=== PATIENT | female | born 1965 | race American Indian/Alaskan Native ===

== ENCOUNTER 2018-08-20 18:18 | Inpatient (IN) | payer MEDICARE ==
--- NOTE | 2018-08-20 18:31 | Emergency Department Report ---
ED Altered Mental Status HPI - General Stated Complaint: AMS Time Seen by Provider: 08/20/18 18:26 - History of Present Illness Initial Comments: Patient is 53 years old female with unknown past medical history. Patient brought to the emergency room via EMS after patient roommate called and stated that patient is unresponsive. EMS stated that the patient was combative with stable vital signs and a blood glucose of more than 500. In the emergency room patient is obtunded. Airway intact with an oxygen saturation of 100%. Unable to obtain more history at this moment. Patient found to be hypothermic with a temperature of 93 with BP of 66/38. Sepsis protocol initiated. Complaint: altered mental status, decreased responsiveness -: unknown Severity: moderate - Related Data Home Medications Medication Instructions Recorded Confirmed Last Taken Aspirin [Aspir-Low] 81 mg PO DAILY 08/20/18 08/20/18 08/20/18 AtorvaSTATin [Lipitor] 10 mg PO QHS 08/20/18 08/20/18 08/20/18 Folic Acid [Folvite] 1 mg PO QDAY 08/20/18 08/20/18 08/20/18 Gabapentin [Neurontin] 300 mg PO Q8HR 08/20/18 08/20/18 08/20/18 HYDROmorphone [Dilaudid] 2 mg PO Q6HR 08/20/18 08/20/18 08/20/18 Hydroxyurea [Hydrea] 500 mg PO DAILY 08/20/18 08/20/18 08/20/18 Linagliptin [Tradjenta] 5 mg PO QDAY 08/20/18 08/20/18 08/20/18 Losartan [Cozaar] 25 mg PO QDAY 08/20/18 08/20/18 08/20/18 Methylphenidate [Ritalin] 10 mg PO DAILY 08/20/18 08/20/18 08/20/18 Omeprazole 40 mg PO DAILY 08/20/18 08/20/18 08/20/18 Sertraline [Zoloft] 100 mg PO QDAY 08/20/18 08/20/18 08/20/18 Triamterene/Hydrochlorothiazid 1 each PO DAILY 08/20/18 08/20/18 08/20/18 [Triamterene-Hctz 37.5-25 mg Cp] metFORMIN [Glucophage] 500 mg PO BID 08/20/18 08/20/18 08/20/18 traZODone [Desyrel] 50 mg PO QHS 08/20/18 08/20/18 08/20/18 Allergies Allergy/AdvReac Type Severity Reaction Status Date / Time No Known Allergies Allergy Unverified 08/20/18 19:24 ED Review of Systems ROS: Stated complaint: AMS Other details as noted in HPI Comment: Unobtainable due to pts medical conditions ED Past Medical Hx - Medications Home Medications: Home Medications Medication Instructions Recorded Confirmed Last Taken Type Aspirin [Aspir-Low] 81 mg PO DAILY 08/20/18 08/20/18 08/20/18 History AtorvaSTATin [Lipitor] 10 mg PO QHS 08/20/18 08/20/18 08/20/18 History Folic Acid [Folvite] 1 mg PO QDAY 08/20/18 08/20/18 08/20/18 History Gabapentin [Neurontin] 300 mg PO Q8HR 08/20/18 08/20/18 08/20/18 History HYDROmorphone [Dilaudid] 2 mg PO Q6HR 08/20/18 08/20/18 08/20/18 History Hydroxyurea [Hydrea] 500 mg PO DAILY 08/20/18 08/20/18 08/20/18 History Linagliptin [Tradjenta] 5 mg PO QDAY 08/20/18 08/20/18 08/20/18 History Losartan [Cozaar] 25 mg PO QDAY 08/20/18 08/20/18 08/20/18 History Methylphenidate [Ritalin] 10 mg PO DAILY 08/20/18 08/20/18 08/20/18 History Omeprazole 40 mg PO DAILY 08/20/18 08/20/18 08/20/18 History Sertraline [Zoloft] 100 mg PO QDAY 08/20/18 08/20/18 08/20/18 History Triamterene/Hydrochlorothiazid 1 each PO DAILY 08/20/18 08/20/18 08/20/18 His tory [Triamterene-Hctz 37.5-25 mg Cp] metFORMIN [Glucophage] 500 mg PO BID 08/20/18 08/20/18 08/20/18 History traZODone [Desyrel] 50 mg PO QHS 08/20/18 08/20/18 08/20/18 History ED Physical Exam - General Limitations: Altered Mental Status General appearance: obtunded - Head Head exam: Present: atraumatic, normocephalic, normal inspection - Eye Eye exam: Present: normal appearance - ENT ENT exam: Present: normal exam, normal orophraynx, mucous membranes moist - Neck Neck exam: Present: normal inspection, full ROM. Absent: tenderness, meningismus, lymphadenopathy, thyromegaly - Respiratory Respiratory exam: Present: normal lung sounds bilaterally. Absent: respiratory distress, wheezes, rales, rhonchi, accessory muscle use, decreased breath sounds, prolonged expiratory - Cardiovascular Cardiovascular Exam: Present: tachycardia - GI/Abdominal GI/Abdominal exam: Present: soft. Absent: distended, tenderness, guarding, rebound - Extremities Exam Extremities exam: Present: normal inspection, full ROM, normal capillary refill - Back Exam Back exam: Present: normal inspection - Neurological Exam Neurological exam: Present: altered - Skin Skin exam: Present: warm, intact, normal color - Level of Consciousness 1a. Level of Consciousness: arousable/minor stimuli - LOC Questions 1b. LOC Questions: answers no questions correctly - LOC Command 1c. LOC Commands: performs no tasks correctly - Best Gaze 2. Best Gaze: normal - Visual 3. Visual: no visual loss - Facial Palsy 4. Facial Palsy: normal symmetrical movement - Motor Arm 5a. Motor Arm Left: some gravity effort 5b. Motor Arm Right: some gravity effort - Motor Leg 6a. Motor Leg Left: some gravity effort 6b. Motor Leg Right: some gravity effort - Limb Ataxia 7. Limb Ataxia: absent - Sensory 8. Sensory: no response/quadraplegic - Best Language 9. Best Language: coma/unresponsive - Dysarthria 10. Dysarthria: intubated or other barrier - Extinction and Inattention 11. Extinction/Inattention: no abnormality - Scoring Total Score: 18 Stroke Severity: Moderate to Severe Stroke ED Course Vital Signs 08/20/18 08/20/18 08/20/18 18:18 18:30 18:37 Temperature Pulse Rate 113 H 111 H 112 H Respiratory 14 15 19 Rate Blood Pressure 174/63 Blood Pressure 174/63 [Left] O2 Sat by Pulse 79 L 88 Oximetry 08/20/18 08/20/18 08/20/18 18:44 18:46 18:54 Temperature 93.4 F L 93.4 F L Pulse Rate 106 H Respiratory 18 Rate Blood Pressure 174/63 Blood Pressure [Left] O2 Sat by Pulse 94 94 Oximetry 08/20/18 08/20/18 08/20/18 19:00 19:16 19:30 Temperature Pulse Rate 107 H 99 H Respiratory 18 13 Rate Blood Pressure 174/63 103/44 103/44 Blood Pressure [Left] O2 Sat by Pulse 97 94 97 Oximetry 08/20/18 08/20/18 08/20/18 19:46 20:00 20:15 Temperature Pulse Rate 101 H 97 H 98 H Respiratory 12 16 16 Rate Blood Pressure 105/53 89/50 105/53 Blood Pressure [Left] O2 Sat by Pulse 99 94 94 Oximetry 08/20/18 08/20/18 08/20/18 20:31 20:45 21:00 Temperature Pulse Rate 105 H 102 H 102 H Respiratory 14 11 L 14 Rate Blood Pressure 127/43 116/59 112/56 Blood Pressure [Left] O2 Sat by Pulse 97 99 96 Oximetry 08/20/18 08/20/18 08/20/18 21:15 21:31 21:45 Temperature Pulse Rate 105 H 101 H 107 H Respiratory 13 11 L 14 Rate Blood Pressure 112/56 112/56 108/53 Blood Pressure [Left] O2 Sat by Pulse 98 93 97 Oximetry 08/20/18 08/20/18 08/20/18 22:00 22:15 22:31 Temperature Pulse Rate 103 H 104 H 105 H Respiratory 13 14 13 Rate Blood Pressure 111/63 111/63 112/67 Blood Pressure [Left] O2 Sat by Pulse 90 91 91 Oximetry 08/20/18 08/20/18 23:07 23:11 Temperature 98.3 F Pulse Rate 106 H Respiratory 13 Rate Blood Pressure 106/51 Blood Pressure [Left] O2 Sat by Pulse 89 Oximetry - Reevaluation(s) Reevaluation #1: 08/20/18 20:06 Patient family arrived. The patient's sister is in the room. 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 Family stated that she has been sweating a lot this morning but she was coherent. They stated that she did not complain of any chest pain cough or shortness of breath. Also there was no complaint of abdominal pain or headache. - Lab Data Result diagrams: 08/20/18 18:18 08/20/18 18:18 Lab Results 08/20/18 08/20/18 08/20/18 Range/Units 18:18 18:18 18:18 WBC 32.1 H (4.5-11.0) K/mm3 RBC 2.89 L (3.65-5.03) M/mm3 Hgb 9.7 L (10.1-14.3) gm/dl Hct 28.0 L (30.3-42.9) % MCV 97 (79-97) fl MCH 34 H (28-32) pg MCHC 35 H (30-34) % RDW 18.9 H (13.2-15.2) % Plt Count 237 (140-440) K/mm3 Lymph # Tattoo Identifier Add Manual Diff Complete Total Counted 200 Seg Neuts % (Manual) 82.5 H (40.0-70.0) % Band Neutrophils % 1.5 % Lymphocytes % (Manual) 8.0 L (13.4-35.0) % Reactive Lymphs % (Man) 0 % Monocytes % (Manual) 6.5 (0.0-7.3) % Eosinophils % (Manual) 0 (0.0-4.3) % Basophils % (Manual) 0.5 (0.0-1.8) % Metamyelocytes % 1.0 % Myelocytes % 0 % Promyelocytes % 0 % Blast Cells % 0 % Nucleated RBC % 1.0 H (0.0-0.9) % Seg Neutrophils # Man 26.5 H (1.8-7.7) K/mm3 Band Neutrophils # 0.5 K/mm3 Lymphocytes # (Manual) 2.6 (1.2-5.4) K/mm3 Abs React Lymphs (Man) 0.0 K/mm3 Monocytes # (Manual) 2.1 H (0.0-0.8) K/mm3 Eosinophils # (Manual) 0.0 (0.0-0.4) K/mm3 Basophils # (Manual) 0.2 H (0.0-0.1) K/mm3 Metamyelocytes # 0.3 K/mm3 Myelocytes # 0.0 K/mm3 Promyelocytes # 0.0 K/mm3 Blast Cells # 0.0 K/mm3 WBC Morphology Not Reportable Hypersegmented Neuts Not Reportable Hyposegmented Neuts Not Reportable Hypogranular Neuts Not Reportable Smudge Cells Not Reportable Toxic Granulation Not Reportable Toxic Vacuolation Not Reportable Dohle Bodies Not Reportable Pelger-Huet Anomaly Not Reportable Christ Rods Not Reportable Platelet Estimate Consistent w auto Clumped Platelets Not Reportable Plt Clumps, EDTA Not Reportable Large Platelets Few Giant Platelets Not Reportable Platelet Satelliting Not Reportable Plt Morphology Comment Not Reportable RBC Morphology Not Reportable Dimorphic RBCs Not Reportable Polychromasia 1+ Hypochromasia 2+ Poikilocytosis 3+ Anisocytosis 2+ Microcytosis Not Reportable Macrocytosis Not Reportable Spherocytes Not Reportable Pappenheimer Bodies Not Reportable Sickle Cells 2+ Target Cells 2+ Tear Drop Cells Not Reportable Ovalocytes Not Reportable Helmet Cells Not Reportable Luis-Haigler Bodies Not Reportable [place] Rings Not Reportable Jennifer Cells Not Reportable Bite Cells Not Reportable Crenated Cell Not Reportable Elliptocytes Not Reportable Acanthocytes (Spur) Not Reportable Rouleaux Not Reportable Hemoglobin C Crystals Not Reportable Schistocytes Not Reportable Malaria parasites Not Reportable Percent Retic (0.78-2.58) % Juancarlos Bodies Not Reportable Hem Pathologist Commnt No PT 13.8 (12.2-14.9) Sec. INR 1.00 (0.87-1.13) APTT 27.4 (24.2-36.6) Sec. Sodium 137 (137-145) mmol/L Potassium 4.9 (3.6-5.0) mmol/L Chloride 101.5 (98-107) mmol/L Carbon Dioxide 19 L (22-30) mmol/L Anion Gap 21 mmol/L BUN 26 H (7-17) mg/dL Creatinine 1.8 H (0.7-1.2) mg/dL Estimated GFR 35 ml/min BUN/Creatinine Ratio 14 % Glucose 461 H (65-100) mg/dL Lactic Acid (0.7-2.0) mmol/L Calcium 9.2 (8.4-10.2) mg/dL Total Bilirubin 3.70 H (0.1-1.2) mg/dL Direct Bilirubin 0.7 H (0-0.2) mg/dL Indirect Bilirubin 3.0 mg/dL AST 54 H (5-40) units/L ALT 28 (7-56) units/L Alkaline Phosphatase 93 (35-129) units/L Ammonia (25-60) umol/L Total Creatine Kinase 46 (30-135) units/L Troponin T 0.035 H (0.00-0.029) ng/mL Total Protein 7.6 (6.3-8.2) g/dL Albumin 4.2 (3.9-5) g/dL Albumin/Globulin Ratio 1.2 % Triglycerides 137 (2-149) mg/dL Cholesterol 129 (50-199) mg/dL LDL Cholesterol Direct 79 (50-130) mg/dL HDL Cholesterol 41 (40-59) mg/dL Cholesterol/HDL Ratio 3.14 % Urine Color (Yellow) Urine Turbidity (Clear) Urine pH (5.0-7.0) Ur Specific [place] (1.003-1.030) Urine Protein (Negative) mg/dL Urine Glucose (UA) (Negative) mg/dL Urine Ketones (Negative) mg/dL Urine Blood (Negative) Urine Nitrite (Negative) Urine Bilirubin (Negative) Urine Urobilinogen (<2.0) mg/dL Ur Leukocyte Esterase (Negative) Urine WBC (Auto) (0.0-6.0) /HPF Urine RBC (Auto) (0.0-6.0) /HPF U Epithel Cells (Auto) (0-13.0) /HPF Urine Bacteria (Auto) (Negative) /HPF Hyaline Casts /LPF Urine Mucus /HPF Salicylates (2.8-20.0) mg/dL Urine Opiates Screen Urine Methadone Screen Acetaminophen (10.0-30.0) ug/mL Ur Barbiturates Screen Ur Phencyclidine Scrn Ur Amphetamines Screen U Benzodiazepines Scrn Urine Cocaine Screen U Marijuana (THC) Screen Drugs of Abuse Note Plasma/Serum Alcohol (0-0.07) % 08/20/18 08/20/18 08/20/18 Range/Units 18:18 18:18 18:18 WBC (4.5-11.0) K/mm3 RBC (3.65-5.03) M/mm3 Hgb (10.1-14.3) gm/dl Hct (30.3-42.9) % MCV (79-97) fl MCH (28-32) pg MCHC (30-34) % RDW (13.2-15.2) % Plt Count (140-440) K/mm3 Lymph # Add Manual Diff Total Counted Seg Neuts % (Manual) (40.0-70.0) % Band Neutrophils % % Lymphocytes % (Manual) (13.4-35.0) % Reactive Lymphs % (Man) % Monocytes % (Manual) (0.0-7.3) % Eosinophils % (Manual) (0.0-4.3) % Basophils % (Manual) (0.0-1.8) % Metamyelocytes % % Myelocytes % % Promyelocytes % % Blast Cells % % Nucleated RBC % (0.0-0.9) % Seg Neutrophils # Man (1.8-7.7) K/mm3 Band Neutrophils # K/mm3 Lymphocytes # (Manual) (1.2-5.4) K/mm3 Abs React Lymphs (Man) K/mm3 Monocytes # (Manual) (0.0-0.8) K/mm3 Eosinophils # (Manual) (0.0-0.4) K/mm3 Basophils # (Manual) (0.0-0.1) K/mm3 Metamyelocytes # K/mm3 Myelocytes # K/mm3 Promyelocytes # K/mm3 Blast Cells # K/mm3 WBC Morphology Hypersegmented Neuts Hyposegmented Neuts Hypogranular Neuts Smudge Cells Toxic Granulation Toxic Vacuolation Dohle Bodies Pelger-Huet Anomaly Christ Rods Platelet Estimate Clumped Platelets Plt Clumps, EDTA Large Platelets Giant Platelets Platelet Satelliting Plt Morphology Comment RBC Morphology Dimorphic RBCs Polychromasia Hypochromasia Poikilocytosis Anisocytosis Microcytosis Macrocytosis Spherocytes Pappenheimer Bodies Sickle Cells Target Cells Tear Drop Cells Ovalocytes Helmet Cells Luis-Haigler Bodies [place] Rings Jennifer Cells Bite Cells Crenated Cell Elliptocytes Acanthocytes (Spur) Rouleaux Hemoglobin C Crystals Schistocytes Malaria parasites Percent Retic (0.78-2.58) % Juancarlos Bodies Hem Pathologist Commnt PT (12.2-14.9) Sec. INR (0.87-1.13) APTT (24.2-36.6) Sec. Sodium (137-145) mmol/L Potassium (3.6-5.0) mmol/L Chloride (98-107) mmol/L Carbon Dioxide (22-30) mmol/L Anion Gap mmol/L BUN (7-17) mg/dL Creatinine (0.7-1.2) mg/dL Estimated GFR ml/min BUN/Creatinine Ratio % Glucose (65-100) mg/dL Lactic Acid (0.7-2.0) mmol/L Calcium (8.4-10.2) mg/dL Total Bilirubin (0.1-1.2) mg/dL Direct Bilirubin (0-0.2) mg/dL Indirect Bilirubin mg/dL AST (5-40) units/L ALT (7-56) units/L Alkaline Phosphatase (35-129) units/L Ammonia (25-60) umol/L Total Creatine Kinase (30-135) units/L Troponin T (0.00-0.029) ng/mL Total Protein (6.3-8.2) g/dL Albumin (3.9-5) g/dL Albumin/Globulin Ratio % Triglycerides (2-149) mg/dL Cholesterol (50-199) mg/dL LDL Cholesterol Direct (50-130) mg/dL HDL Cholesterol (40-59) mg/dL Cholesterol/HDL Ratio % Urine Color (Yellow) Urine Turbidity (Clear) Urine pH (5.0-7.0) Ur Specific [place] (1.003-1.030) Urine Protein (Negative) mg/dL Urine Glucose (UA) (Negative) mg/dL Urine Ketones (Negative) mg/dL Urine Blood (Negative) Urine Nitrite (Negative) Urine Bilirubin (Negative) Urine Urobilinogen (<2.0) mg/dL Ur Leukocyte Esterase (Negative) Urine WBC (Auto) (0.0-6.0) /HPF Urine RBC (Auto) (0.0-6.0) /HPF U Epithel Cells (Auto) (0-13.0) /HPF Urine Bacteria (Auto) (Negative) /HPF Hyaline Casts /LPF Urine Mucus /HPF Salicylates < 0.3 L (2.8-20.0) mg/dL Urine Opiates Screen Urine Methadone Screen Acetaminophen < 5.0 L (10.0-30.0) ug/mL Ur Barbiturates Screen Ur Phencyclidine Scrn Ur Amphetamines Screen U Benzodiazepines Scrn Urine Cocaine Screen U Marijuana (THC) Screen Drugs of Abuse Note Plasma/Serum Alcohol < 0.01 (0-0.07) % 08/20/18 08/20/18 08/20/18 Range/Units 18:44 18:44 19:50 WBC (4.5-11.0) K/mm3 RBC (3.65-5.03) M/mm3 Hgb (10.1-14.3) gm/dl Hct (30.3-42.9) % MCV (79-97) fl MCH (28-32) pg MCHC (30-34) % RDW (13.2-15.2) % Plt Count (140-440) K/mm3 Lymph # Add Manual Diff Total Counted Seg Neuts % (Manual) (40.0-70.0) % Band Neutrophils % % Lymphocytes % (Manual) (13.4-35.0) % Reactive Lymphs % (Man) % Monocytes % (Manual) (0.0-7.3) % Eosinophils % (Manual) (0.0-4.3) % Basophils % (Manual) (0.0-1.8) % Metamyelocytes % % Myelocytes % % Promyelocytes % % Blast Cells % % Nucleated RBC % (0.0-0.9) % Seg Neutrophils # Man (1.8-7.7) K/mm3 Band Neutrophils # K/mm3 Lymphocytes # (Manual) (1.2-5.4) K/mm3 Abs React Lymphs (Man) K/mm3 Monocytes # (Manual) (0.0-0.8) K/mm3 Eosinophils # (Manual) (0.0-0.4) K/mm3 Basophils # (Manual) (0.0-0.1) K/mm3 Metamyelocytes # K/mm3 Myelocytes # K/mm3 Promyelocytes # K/mm3 Blast Cells # K/mm3 WBC Morphology Hypersegmented Neuts Hyposegmented Neuts Hypogranular Neuts Smudge Cells Toxic Granulation Toxic Vacuolation Dohle Bodies Pelger-Huet Anomaly Christ Rods Platelet Estimate Clumped Platelets Plt Clumps, EDTA Large Platelets Giant Platelets Platelet Satelliting Plt Morphology Comment RBC Morphology Dimorphic RBCs Polychromasia Hypochromasia Poikilocytosis Anisocytosis Microcytosis Macrocytosis Spherocytes Pappenheimer Bodies Sickle Cells Target Cells Tear Drop Cells Ovalocytes Helmet Cells Luis-Haigler Bodies [place] Rings Jennifer Cells Bite Cells Crenated Cell Elliptocytes Acanthocytes (Spur) Rouleaux Hemoglobin C Crystals Schistocytes Malaria parasites Percent Retic (0.78-2.58) % Juancarlos Bodies Hem Pathologist Commnt PT (12.2-14.9) Sec. INR (0.87-1.13) APTT (24.2-36.6) Sec. Sodium (137-145) mmol/L Potassium (3.6-5.0) mmol/L Chloride (98-107) mmol/L Carbon Dioxide (22-30) mmol/L Anion Gap mmol/L BUN (7-17) mg/dL Creatinine (0.7-1.2) mg/dL Estimated GFR ml/min BUN/Creatinine Ratio % Glucose (65-100) mg/dL Lactic Acid 6.60 H* (0.7-2.0) mmol/L Calcium (8.4-10.2) mg/dL Total Bilirubin (0.1-1.2) mg/dL Direct Bilirubin (0-0.2) mg/dL Indirect Bilirubin mg/dL AST (5-40) units/L ALT (7-56) units/L Alkaline Phosphatase (35-129) units/L Ammonia 66.0 H (25-60) umol/L Total Creatine Kinase (30-135) units/L Troponin T (0.00-0.029) ng/mL Total Protein (6.3-8.2) g/dL Albumin (3.9-5) g/dL Albumin/Globulin Ratio % Triglycerides (2-149) mg/dL Cholesterol (50-199) mg/dL LDL Cholesterol Direct (50-130) mg/dL HDL Cholesterol (40-59) mg/dL Cholesterol/HDL Ratio % Urine Color [place] (Yellow) Urine Turbidity Clear (Clear) Urine pH 5.0 (5.0-7.0) Ur Specific [place] 1.011 (1.003-1.030) Urine Protein 100 mg/dl (Negative) mg/dL Urine Glucose (UA) >=500 (Negative) mg/dL Urine Ketones Neg (Negative) mg/dL Urine Blood Mod (Negative) Urine Nitrite Neg (Negative) Urine Bilirubin Neg (Negative) Urine Urobilinogen 4.0 (<2.0) mg/dL Ur Leukocyte Esterase Neg (Negative) Urine WBC (Auto) 3.0 (0.0-6.0) /HPF Urine RBC (Auto) 2.0 (0.0-6.0) /HPF U Epithel Cells (Auto) < 1.0 (0-13.0) /HPF Urine Bacteria (Auto) 1+ (Negative) /HPF Hyaline Casts 24 /LPF Urine Mucus Few /HPF Salicylates (2.8-20.0) mg/dL Urine Opiates Screen Urine Methadone Screen Acetaminophen (10.0-30.0) ug/mL Ur Barbiturates Screen Ur Phencyclidine Scrn Ur Amphetamines Screen U Benzodiazepines Scrn Urine Cocaine Screen U Marijuana (THC) Screen Drugs of Abuse Note Plasma/Serum Alcohol (0-0.07) % 08/20/18 08/20/18 08/20/18 Range/Units 19:50 20:12 21:46 WBC (4.5-11.0) K/mm3 RBC (3.65-5.03) M/mm3 Hgb (10.1-14.3) gm/dl Hct (30.3-42.9) % MCV (79-97) fl MCH (28-32) pg MCHC (30-34) % RDW (13.2-15.2) % Plt Count (140-440) K/mm3 Lymph # Add Manual Diff Total Counted Seg Neuts % (Manual) (40.0-70.0) % Band Neutrophils % % Lymphocytes % (Manual) (13.4-35.0) % Reactive Lymphs % (Man) % Monocytes % (Manual) (0.0-7.3) % Eosinophils % (Manual) (0.0-4.3) % Basophils % (Manual) (0.0-1.8) % Metamyelocytes % % Myelocytes % % Promyelocytes % % Blast Cells % % Nucleated RBC % (0.0-0.9) % Seg Neutrophils # Man (1.8-7.7) K/mm3 Band Neutrophils # K/mm3 Lymphocytes # (Manual) (1.2-5.4) K/mm3 Abs React Lymphs (Man) K/mm3 Monocytes # (Manual) (0.0-0.8) K/mm3 Eosinophils # (Manual) (0.0-0.4) K/mm3 Basophils # (Manual) (0.0-0.1) K/mm3 Metamyelocytes # K/mm3 Myelocytes # K/mm3 Promyelocytes # K/mm3 Blast Cells # K/mm3 WBC Morphology Hypersegmented Neuts Hyposegmented Neuts Hypogranular Neuts Smudge Cells Toxic Granulation Toxic Vacuolation Dohle Bodies Pelger-Huet Anomaly Christ Rods Platelet Estimate Clumped Platelets Plt Clumps, EDTA Large Platelets Giant Platelets Platelet Satelliting Plt Morphology Comment RBC Morphology Dimorphic RBCs Polychromasia Hypochromasia Poikilocytosis Anisocytosis Microcytosis Macrocytosis Spherocytes Pappenheimer Bodies Sickle Cells Target Cells Tear Drop Cells Ovalocytes Helmet Cells Luis-Haigler Bodies [place] Rings [place] Cells Bite Cells Crenated Cell Elliptocytes Acanthocytes (Spur) Rouleaux Hemoglobin C Crystals Schistocytes Malaria parasites Percent Retic 8.26 H (0.78-2.58) % Juancarlos Bodies Hem Pathologist Commnt PT (12.2-14.9) Sec. INR (0.87-1.13) APTT (24.2-36.6) Sec. Sodium (137-145) mmol/L Potassium (3.6-5.0) mmol/L Chloride (98-107) mmol/L Carbon Dioxide (22-30) mmol/L Anion Gap mmol/L BUN (7-17) mg/dL Creatinine (0.7-1.2) mg/dL Estimated GFR ml/min BUN/Creatinine Ratio % Glucose (65-100) mg/dL Lactic Acid 1.50 (0.7-2.0) mmol/L Calcium (8.4-10.2) mg/dL Total Bilirubin (0.1-1.2) mg/dL Direct Bilirubin (0-0.2) mg/dL Indirect Bilirubin mg/dL AST (5-40) units/L ALT (7-56) units/L Alkaline Phosphatase (35-129) units/L Ammonia (25-60) umol/L Total Creatine Kinase (30-135) units/L Troponin T (0.00-0.029) ng/mL Total Protein (6.3-8.2) g/dL Albumin (3.9-5) g/dL Albumin/Globulin Ratio % Triglycerides (2-149) mg/dL Cholesterol (50-199) mg/dL LDL Cholesterol Direct (50-130) mg/dL HDL Cholesterol (40-59) mg/dL Cholesterol/HDL Ratio % Urine Color (Yellow) Urine Turbidity (Clear) Urine pH (5.0-7.0) Ur Specific [place] (1.003-1.030) Urine Protein (Negative) mg/dL Urine Glucose (UA) (Negative) mg/dL Urine Ketones (Negative) mg/dL Urine Blood (Negative) Urine Nitrite (Negative) Urine Bilirubin (Negative) Urine Urobilinogen (<2.0) mg/dL Ur Leukocyte Esterase (Negative) Urine WBC (Auto) (0.0-6.0) /HPF Urine RBC (Auto) (0.0-6.0) /HPF U Epithel Cells (Auto) (0-13.0) /HPF Urine Bacteria (Auto) (Negative) /HPF Hyaline Casts /LPF Urine Mucus /HPF Salicylates (2.8-20.0) mg/dL Urine Opiates Screen Presumptive negative Urine Methadone Screen Presumptive negative Acetaminophen (10.0-30.0) ug/mL Ur Barbiturates Screen Presumptive negative Ur Phencyclidine Scrn Presumptive negative Ur Amphetamines Screen Presumptive negative U Benzodiazepines Scrn Presumptive negative Urine Cocaine Screen Presumptive negative U Marijuana (THC) Screen Presumptive negative Drugs of Abuse Note Disclamer Plasma/Serum Alcohol (0-0.07) % - EKG Data -: EKG Interpreted by [facility] EKG shows normal: sinus rhythm Rate: tachycardia Interpretation: no acute changes - Radiology Data Radiology results: report reviewed Referring Physician: SHAE CAMARA Patient Name: JELENA WILKERSON Date of : 1965 Sex: Female Report Date: 2018-08-20 Report Status: Finalized Findings [facility] [address] [place] [address] Cat Scan Report Signed Patient: JELENA WILKERSON MR#: [id number] : 1965 Acct:[id number] Age/Sex: 53 / F ADM Date: 08/20/18 Loc: ED Attending Dr: Ordering Physician: SHAE CAMARA Date of Service: 08/20/18 Procedure(s): CT head/brain wo con Accession Number(s): [id number] cc: SHAE CAMARA PROCEDURE: CT HEAD/BRAIN WO CON TECHNIQUE: Computerized tomography of the head was performed without contrast material. Imaging was obtained in axial increments. CT DOSE LENGTH PRODUCT: 1063.07 mGycm HISTORY: Altered Mental Status COMPARISONS: None . FINDINGS: Areas of low density in the medial aspect of both occipital lobes are consistent with remote areas of infarct. There is also ballooning of the atria of both lateral ventricles due to the e ncephalomalacia. The ventricular system is otherwise normal in size and configuration. There is no evidence for parenchymal volume loss. There is no evidence for mass lesion, mass effect, midline shift, acute intracranial hemorrhage, or acute ischemia/ infarction. No evidence for acute skull fracture is seen. No abnormality in the overlying scalp soft tissues is seen. Visualized paranasal sinuses are clear. IMPRESSION: No acute intracranial process noted. 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 This document is electronically signed by Poppy Garrett MD., August 20 2018 08:00:36 PM ET Transcribed By: [facility] Dictated By: POPPY GARRETT MD Electronically Authenticated By: POPPY GARRETT MD Signed Date/Time: 08/20/182002 DD/ 33 TD/TT: 08/20/181933 Referring Physician: SHAE CAMARA Patient Name: JELENA WILKERSON Date of : 1965 Sex: Female Report Date: 2018-08-20 Report Status: Finalized Findings [address] [address] XRay Report Signed Patient: JELENA WILKERSON MR#: [id number] : 1965 Acct:[id number] Age/Sex: 53 / F ADM Date: 08/20/18 Loc: ED Attending Dr: Ordering Physician: SHAE CAMARA Date of Service: 08/20/18 Procedure(s): XR chest 1V ap Accession Number(s): [id number] cc: SHAE CAMARA Fluoro Time In Minutes: PROCEDURES: XR CHEST 1V AP TECHNIQUE: AP portable view of the chest. HISTORY: Altered Mental Status COMPARISON: None FINDINGS: Lines, tubes, and devices: N/A Lungs and pleura: Trachea is normal in position. Lungs are clear of infiltrate, pleural effusion, vascular congestion, or pneumothorax. Cardiomediastinal silhouette: Cardiac and mediastinal silhouettes are unremarkable. Other: Bony structures are intact. IMPRESSION: No acute cardiopulmonary process seen. This document is electronically signed by Poppy Garrett MD., August 20 2018 08: 42:04 PM ET Transcribed By: [facility] Dictated By: POPPY GARRETT MD Electronically Authenticated By: POPPY GARRETT MD Signed Date/Time: 08/20/182043 [facility] [address] [place] [address] Cat Scan Report Signed Patient: JELENA WILKERSON MR#: [id number] : 1965 Acct:[id number] Age/Sex: 53 / F ADM Date: 08/20/18 Loc: ED Attending Dr: Ordering Physician: SHAE CAMARA Date of Service: 08/20/18 Procedure(s): CT abdomen pelvis wo con Accession Number(s): [id number] cc: SHAE CAMARA PROCEDURE: CT ABDOMEN PELVIS WO CON TECHNIQUE: Computerized axial tomography of the abdomen and pelvis was performed without intravenous contrast. This study is performed without intravascular contrast material and its sensitivity for abdominal and pelvic pathology, including neoplasms, inflammation, abscess, free fluid, thrombosis, arterial dissection and infarction, is reduced compared with a contrast enhanced study. CT DOSE LENGTH PRODUCT: mGycm HISTORY: ABDOMINAL PAIN COMPARISONS: None . FINDINGS: Limited study due to breathing artifacts. Cardiomegaly is noted. Atelectatic changes are noted in the visualized bilateral lower lungs. Liver, pancreas and bilateral adrenal glands are within normal limits. Bilateral kidneys demonstrate normal size without calculi or hydronephrosis. A focal area of scarring noted involving left kidney. Urinary bladder is empty with a Velazquez bulb in situ. Aorta is of normal caliber. An IVC filter is identified. There is no free fluid or free air. Status post cholecystectomy. Small bowel loops are within normal limits. Multiple colonic diverticula are noted without evidence of diverticulitis. Appendix is not distinctly visualized. There are no inflammatory changes in the pericecal region. Vertebral height is normal. IMPRESSION: Mild cardiomegaly No acute intra-abdominal or pelvic pathology Atelectatic changes bilateral lower lungs. Any underlying infiltrates cannot be excluded. 6 This document is electronically signed by Deborah Sanford MD., August 20 2018 11:32:12 PM ET Transcribed By: [facility] Dictated By: DEBORAH SANFORD Electronically Authenticated By: DEBORAH SANFORD Signed Date/Time: 08/20/182333 DD/ 10 TD/TT: 08/20/182311 DD/ TD/TT: 08/20/181916 - Medical Decision Making Patient is 53 years old female with unknown past medical history. Patient br ought to the emergency room via EMS after patient roommate called and stated that patient is unresponsive. EMS stated that the patient was combative with stable vital signs and a blood glucose of more than 500. In the emergency room patient is obtunded. Airway intact with an oxygen saturation of 100%. Unable to obtain more history at this moment. Patient found to be hypothermic with a temperature of 93. Sepsis protocol initiated. Patient found to be hypothermic with a septic shock. Blood loss also 32,000. A CT brain is negative for acute finding. CT abdomen and pelvis is negative exc ept for possible bilateral lower lobes infiltrate. Patient improved significantly with normal saline. Her lactic acid went down from 6-1.5. I discussed the patient with Dr. Suha Wagner, she agreed to admit the patient to medical service. Critical Care Time: Yes Critical care time in (mins) excluding proc time.: 30 Critical care attestation.: If time is entered above; I have spent that time in minutes in the direct care of this critically ill patient, excluding procedure time. ED Disposition Clinical Impression: Hypothermia, Septic shock, Acute renal failure Disposition: OP ADMIT IP TO THIS HOSP Is pt being admited?: Yes Condition: Stable Referrals: DEYA HANNA MD [Primary Care Provider] - 3-5 Days
[2018-08-20 18:43] LABS: Hemoglobin 9.7 gm/dl (10.1-14.3); Mean Corpuscular HGB Conc 35 % (30-34); Mean Corpuscular Volume 97 fl (79-97); Platelet Count 237 K/mm3 (140-440); Red Blood Count 2.89 M/mm3 (3.65-5.03); Red Cell Distribution Width 18.9 % (13.2-15.2)
[2018-08-20 18:55] LABS: Partial Thromboplastin Time 27.4 Sec. (24.2-36.6)
[2018-08-20] MEDS ORDERED: NACL 0.9% 1000 ML 1,000 ML IV ONE ×3 (19:03→20:08)
[2018-08-20 19:09] LABS: Albumin 4.2 g/dL (3.9-5); Calcium 9.2 mg/dL (8.4-10.2)
[2018-08-20 19:19] LABS: Bilirubin,Direct 0.7 mg/dL (0-0.2)
[2018-08-20 19:21] LABS: Chol/HDL Ratio 3.14 %
[2018-08-20] MEDS ORDERED: HumuLIN R IV ONE (20:00)
[2018-08-20] MEDS ORDERED: ZOSYN/NS 3.375GM/50ML 3.375 GM/50 ML BAG IV ONE (20:00)
--- NOTE | 2018-08-20 20:03 | Cat Scan Report ---
PROCEDURE: CT HEAD/BRAIN WO CON TECHNIQUE: Computerized tomography of the head was performed without contrast material. Imaging was obtained in axial increments. CT DOSE LENGTH PRODUCT: 1063.07 mGycm HISTORY: Altered Mental Status COMPARISONS: None . FINDINGS: Areas of low density in the medial aspect of both occipital lobes are consistent with remote areas of infarct. There is also ballooning of the atria of both lateral ventricles due to the encephalomalaci a. The ventricular system is otherwise normal in size and configuration. There is no evidence for parenc hymal volume loss. There is no evidence for mass lesion, mass effect, midline shift, acute intracranial hemorrhage, or a cute ischemia/ infarction. No evidence for acute skull fracture is seen. No abnormality in the overlying scalp soft tissues is s een. Visualized paranasal sinuses are clear. IMPRESSION: No acute intracranial process noted. 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 This document is electronically signed by Poppy Garrett MD., August 20 2018 08:00:36 PM ET
[2018-08-20 20:21] LABS: Amphetamine Screen,Urine PRESUMPTIVE NEGATIVE; Benzodiazepines Screen,Urine PRESUMPTIVE NEGATIVE; Cannabinoid Screen,Urine PRESUMPTIVE NEGATIVE; Cocaine Screen,Urine PRESUMPTIVE NEGATIVE; Methadone Screen,Urine PRESUMPTIVE NEGATIVE; Opiate Screen,Urine PRESUMPTIVE NEGATIVE
[2018-08-20 20:39] LABS: Band Neutrophils # (Manual) 0.5 K/mm3; Basophils % (Manual) 0.5 % (0.0-1.8); Eosinophils % (Manual) 0 % (0.0-4.3); Monocytes % (Manual) 6.5 % (0.0-7.3); Total Cells Counted 200
[2018-08-20 20:40] LABS: Anisocytosis 2+; Poikilocytosis 3+; Sickle Cells 2+; Target Cells 2+
[2018-08-20 20:41] LABS: Hypochromasia 2+; Large Platelets Few; Platelet Estimate Consistent w Auto
--- NOTE | 2018-08-20 20:44 | XRay Report ---
PROCEDURES: XR CHEST 1V AP TECHNIQUE: AP portable view of the chest. HISTORY: Altered Mental Status COMPARISON: None FINDINGS: Lines, tubes, and devices: N/A Lungs and pleura: Trachea is normal in position. Lungs are clear of infiltrate, pleural effusion, vas cular congestion, or pneumothorax. Cardiomediastinal silhouette: Cardiac and mediastinal silhouettes are unremarkable. Other: Bony structures are intact. IMPRESSION: No acute cardiopulmonary process seen. This document is electronically signed by Poppy Garrett MD., August 20 2018 08:42:04 PM ET
[2018-08-20 20:54] LABS: Bacteria,Urine 1+ /HPF (Negative); Bilirubin,Urine NEG (Negative); Blood,Urine MOD (Negative); Color,Urine Amber (Yellow); Hyaline Casts,Urine 24 /LPF; Mucus,Urine FEW /HPF
--- NOTE | 2018-08-20 23:34 | Cat Scan Report ---
PROCEDURE: CT ABDOMEN PELVIS WO CON TECHNIQUE: Computerized axial tomography of the abdomen and pelvis was performed without intravenous contrast. This study is performed without intravascular contrast material and its sensitivity for ab dominal and pelvic pathology, including neoplasms, inflammation, abscess, free fluid, thrombosis, art erial dissection and infarction, is reduced compared with a contrast enhanced study. CT DOSE LENGTH PRODUCT: mGycm HISTORY: ABDOMINAL PAIN COMPARISONS: None . FINDINGS: Limited study due to breathing artifacts. Cardiomegaly is noted. Atelectatic changes are noted in the visualized bilateral lower lungs. Liver, pancreas and bilateral adrenal glands are within normal diaz its. Bilateral kidneys demonstrate normal size without calculi or hydronephrosis. A focal area of sca rring noted involving left kidney. Urinary bladder is empty with a Velazquez bulb in situ. Aorta is of no rmal caliber. An IVC filter is identified. There is no free fluid or free air. Status post cholecyste ctomy. Small bowel loops are within normal limits. Multiple colonic diverticula are noted without marcia dence of diverticulitis. Appendix is not distinctly visualized. There are no inflammatory changes in the pericecal region. Vertebral height is normal. IMPRESSION: Mild cardiomegaly No acute intra-abdominal or pelvic pathology Atelectatic changes bilateral lower lungs. Any underlying infiltrates cannot be excluded. 6 This document is electronically signed by Lee Sanford MD., August 20 2018 11:32:12 PM ET
--- NOTE | 2018-08-20 23:58 | History and Physical Report ---
History of Present Illness Date of examination: 08/21/18 History of present illness: 53-year-old a history of hypertension, sickle cell, hyperlipidemia, diabetes, CVA, legally blind is brought to the emergency room for decreased responsiveness. The sister at bedside state that she had decreased oral intake over the last few days, she is going through a divorce. Today she stated that there were about 12 pills, her schedule morning and evening medicine, the patient accidentally took them. The sister does not know which medications she took. She went to check on the patient a few hours later and found that she had decreased responsiveness, she urinated on herself. Review of system is unobtainable. In the emergency room systolic blood pressure in the 60s, hypothermic, she was given IV fluid to which he responded PAST MEDICAL HISTORY: hypertension, sickle cell, hyperlipidemia, diabetes, CVA, legally blind PAST SURGICAL HISTORY: Hernia repair, cholecystectomy SOCIAL HISTORY: Denies alcohol, drugs, tobacco FAMILY HISTORY: Hypertension Medications and Allergies Allergies Allergy/AdvReac Type Severity Reaction Status Date / Time No Known Allergies Allergy Unverified 08/20/18 19:24 Home Medications Medication Instructions Recorded Confirmed Last Taken Type Aspirin [Aspir-Low] 81 mg PO DAILY 08/20/18 08/20/18 08/20/18 History AtorvaSTATin [Lipitor] 10 mg PO QHS 08/20/18 08/20/18 08/20/18 History Folic Acid [Folvite] 1 mg PO QDAY 08/20/18 08/20/18 08/20/18 History Gabapentin [Neurontin] 300 mg PO Q8HR 08/20/18 08/20/18 08/20/18 History HYDROmorphone [Dilaudid] 2 mg PO Q6HR 08/20/18 08/20/18 08/20/18 History Hydroxyurea [Hydrea] 500 mg PO DAILY 08/20/18 08/20/18 08/20/18 History Linagliptin [Tradjenta] 5 mg PO QDAY 08/20/18 08/20/18 08/20/18 History Losartan [Cozaar] 25 mg PO QDAY 08/20/18 08/20/18 08/20/18 History Methylphenidate [Ritalin] 10 mg PO DAILY 08/20/18 08/20/18 08/20/18 History Omeprazole 40 mg PO DAILY 08/20/18 08/20/18 08/20/18 History Sertraline [Zoloft] 100 mg PO QDAY 08/20/18 08/20/18 08/20/18 History Triamterene/Hydrochlorothiazid 1 each PO DAILY 08/20/18 08/20/18 08/20/18 History [Triamterene-Hctz 37.5-25 mg Cp] metFORMIN [Glucophage] 500 mg PO BID 08/20/18 08/20/18 08/20/18 History traZODone [Desyrel] 50 mg PO QHS 08/20/18 08/20/18 08/20/18 History Exam - Constitutional Vitals: Temp Pulse Resp BP Pulse Ox 98.3 F 106 H 13 106/51 89 08/20/18 23:11 08/20/18 23:07 08/20/18 23:07 08/20/18 23:07 08/20/18 23:07 Results - Labs CBC & Chem 7: 08/20/18 18:18 08/20/18 18:18 Labs: Abnormal lab results 08/20/18 08/20/18 08/20/18 Range/Units 18:18 18:18 18:18 WBC 32.1 H (4.5-11.0) K/mm3 RBC 2.89 L (3.65-5.03) M/mm3 Hgb 9.7 L (10.1-14.3) gm/dl Hct 28.0 L (30.3-42.9) % MCH 34 H (28-32) pg MCHC 35 H (30-34) % RDW 18.9 H (13.2-15.2) % Seg Neuts % (Manual) 82.5 H (40.0-70.0) % Lymphocytes % (Manual) 8.0 L (13.4-35.0) % Nucleated RBC % 1.0 H (0.0-0.9) % Seg Neutrophils # Man 26.5 H (1.8-7.7) K/mm3 Monocytes # (Manual) 2.1 H (0.0-0.8) K/mm3 Basophils # (Manual) 0.2 H (0.0-0.1) K/mm3 Percent Retic (0.78-2.58) % Carbon Dioxide 19 L (22-30) mmol/L BUN 26 H (7-17) mg/dL Creatinine 1.8 H (0.7-1.2) mg/dL Glucose 461 H (65-100) mg/dL Lactic Acid (0.7-2.0) mmol/L Total Bilirubin 3.70 H (0.1-1.2) mg/dL Direct Bilirubin 0.7 H (0-0.2) mg/dL AST 54 H (5-40) units/L Ammonia (25-60) umol/L Troponin T 0.035 H (0.00-0.029) ng/mL Salicylates < 0.3 L (2.8-20.0) mg/dL Acetaminophen (10.0-30.0) ug/mL 08/20/18 08/20/18 08/20/18 Range/Units 18:18 18:44 18:44 WBC (4.5-11.0) K/mm3 RBC (3.65-5.03) M/mm3 Hgb (10.1-14.3) gm/dl Hct (30.3-42.9) % MCH (28-32) pg MCHC (30-34) % RDW (13.2-15.2) % Seg Neuts % (Manual) (40.0-70.0) % Lymphocytes % (Manual) (13.4-35.0) % Nucleated RBC % (0.0-0.9) % Seg Neutrophils # Man (1.8-7.7) K/mm3 Monocytes # (Manual) (0.0-0.8) K/mm3 Basophils # (Manual) (0.0-0.1) K/mm3 Percent Retic (0.78-2.58) % Carbon Dioxide (22-30) mmol/L BUN (7-17) mg/dL Creatinine (0.7-1.2) mg/dL Glucose (65-100) mg/dL Lactic Acid 6.60 H* (0.7-2.0) mmol/L Total Bilirubin (0.1-1.2) mg/dL Direct Bilirubin (0-0.2) mg/dL AST (5-40) units/L Ammonia 66.0 H (25-60) umol/L Troponin T (0.00-0.029) ng/mL Salicylates (2.8-20.0) mg/dL Acetaminophen < 5.0 L (10.0-30.0) ug/mL 08/20/18 Range/Units 20:12 WBC (4.5-11.0) K/mm3 RBC (3.65-5.03) M/mm3 Hgb (10.1-14.3) gm/dl Hct (30.3-42.9) % MCH (28-32) pg MCHC (30-34) % RDW (13.2-15.2) % Seg Neuts % (Manual) (40.0-70.0) % Lymphocytes % (Manual) (13.4-35.0) % Nucleated RBC % (0.0-0.9) % Seg Neutrophils # Man (1.8-7.7) K/mm3 Monocytes # (Manual) (0.0-0.8) K/mm3 Basophils # (Manual) (0.0-0.1) K/mm3 Percent Retic 8.26 H (0.78-2.58) % Carbon Dioxide (22-30) mmol/L BUN (7-17) mg/dL Creatinine (0.7-1.2) mg/dL Glucose (65-100) mg/dL Lactic Acid (0.7-2.0) mmol/L Total Bilirubin (0.1-1.2) mg/dL Direct Bilirubin (0-0.2) mg/dL AST (5-40) units/L Ammonia (25-60) umol/L Troponin T (0.00-0.029) ng/mL Salicylates (2.8-20.0) mg/dL Acetaminophen (10.0-30.0) ug/mL - Imaging and Cardiology CT scan - abdomen: report reviewed CT Scan - head: report reviewed CT scan - pelvis: report reviewed Assessment and Plan AAssessment Encephalopathy improving most likely secondary to medications SiRS Renal failure, ?acute Hypotension resolved Hyperlipidemia Diabetes Sickle cell History of CVA Plan Admit to medicine Start empiric IV antibiotic, follow cultures Start IV fluids, follow kidney function, check cardiac enzymes Check fingersticks, hold outpatient medications for now DVT prophylaxis
[2018-08-21] MEDS ORDERED: NACL 0.9% 1000 ML 1,000 ML IV SCH (01:00)
[2018-08-21] MEDS ORDERED: NACL 0.9% 1000 ML 1,000 ML ONE (01:08)
[2018-08-21] MEDS ORDERED: VANCOMYCIN/NS 1 GM/250 ML 1 GM/250 ML BAG IV ONE (01:15)
[2018-08-21] MEDS ORDERED: SODIUM CHLORIDE FLUSH SYRINGE 10 ML IV PRN (03:21)
[2018-08-21] MEDS ORDERED: TYLENOL PO PRN (03:21)
[2018-08-21] MEDS ORDERED: ZOFRAN IV PRN (03:21)
[2018-08-21] MEDS ORDERED: D50W (25GM) Syringe IV PRN (04:00)
[2018-08-21] MEDS: HumaLOG SUB-Q SCH ×4 (05:59→19:00)
[2018-08-21 06:11] LABS: Hematocrit 29.5 % (30.3-42.9); Hemoglobin 10.2 gm/dl (10.1-14.3); Mean Corpuscular HGB Conc 34 % (30-34); Mean Corpuscular Volume 95 fl (79-97); Platelet Count 199 K/mm3 (140-440); Red Blood Count 3.12 M/mm3 (3.65-5.03)
[2018-08-21 06:29] LABS: Calcium 8.3 mg/dL (8.4-10.2)
[2018-08-21 06:31] LABS: Creatine Kinase MB 13.9 ng/mL (0.0-4.0)
[2018-08-21 08:03] LABS: Band Neutrophils # (Manual) 4.1 K/mm3; Basophils % (Manual) 0 % (0.0-1.8); Eosinophils % (Manual) 0 % (0.0-4.3); Myelocytes # (Manual) 1.2 K/mm3; Total Cells Counted 100
[2018-08-21 08:04] LABS: Anisocytosis 1+; Hypochromasia 1+; Poikilocytosis 3+; Sickle Cells 1+; Target Cells 1+
[2018-08-21] MEDS ORDERED: LOVENOX SUB-Q SCH (10:00)
[2018-08-21] MEDS: NACL 0.9% 1000 ML 1,000 ML IV SCH ×2 (10:19→21:15)
[2018-08-21] MEDS: SODIUM CHLORIDE FLUSH SYRINGE 10 ML IV SCH (10:27)
[2018-08-21] MEDS: HALFPRIN EC PO SCH (10:28)
--- NOTE | 2018-08-21 13:56 | Consultation ---
History of Present Illness Consult date: 08/21/18 Requesting physician: AURY DE LUNA Consult reason: abnormal cardiac enzymes History of present illness: The pt is a 53-year-old female with a past medical history of HTN, DM, HLP, CVA with residual right-sided weakness, sickle cell, legally blind. She is lethargic and nonverbal on evaluation and thus HPI is obtained per her sister (primary caregiver) at bedside. Pt was brought to ED for evaluation of altered mental status. Pt's sister at bedside states that yesterday pt was in her normal state of health. She was left alone for a few hours and when her sister returned to check on her, the pt was holding an empty pill bottle that was labeled "hydromorphone" and pt stated that she accidentally took all of the pills in the bottle. Upon further questioning, pt told her sister that there were a few different pills in that bottle and she was unsure exactly how many she took. Pt went to bed for a nap and when pt's sister went to check on the patient a few hours later and found that she had decreased responsiveness and her bed was soaked, as if she urinated on herself. Pt's sister called poison control and was told that pt needed eval in ED. In ED pt was found to be hypotensive and hypothermic with GELA, leukocytosis, lactic acidosis, anemia and blood glucose >400. Pt also found to have elevated troponins and thus cardiology has been consulted. Pt's sister denies any known prior cardiac issues, including CAD, AMI or HF. Past History Past Medical History: diabetes, hypertension, hyperlipidemia, stroke, other (sickel cell anemia) Medications and Allergies Allergies Allergy/AdvReac Type Severity Reaction Status Date / Time No Known Allergies Allergy Unverified 08/20/18 19:24 Home Medications Medication Instructions Recorded Confirmed Last Taken Type Aspirin [Aspir-Low] 81 mg PO DAILY 08/20/18 08/20/18 08/20/18 History AtorvaSTATin [Lipitor] 10 mg PO QHS 08/20/18 08/20/18 08/20/18 History Folic Acid [Folvite] 1 mg PO QDAY 08/20/18 08/20/18 08/20/18 History Gabapentin [Neurontin] 300 mg PO Q8HR 08/20/18 08/20/18 08/20/18 History HYDROmorphone [Dilaudid] 2 mg PO Q6HR 08/20/18 08/20/18 08/20/18 History Hydroxyurea [Hydrea] 500 mg PO DAILY 08/20/18 08/20/18 08/20/18 History Linagliptin [Tradjenta] 5 mg PO QDAY 08/20/18 08/20/18 08/20/18 History Losartan [Cozaar] 25 mg PO QDAY 08/20/18 08/20/18 08/20/18 History Methylphenidate [Ritalin] 10 mg PO DAILY 08/20/18 08/20/18 08/20/18 History Omeprazole 40 mg PO DAILY 08/20/18 08/20/18 08/20/18 History Sertraline [Zoloft] 100 mg PO QDAY 08/20/18 08/20/18 08/20/18 History Triamterene/Hydrochlorothiazid 1 each PO DAILY 08/20/18 08/20/18 08/20/18 History [Triamterene-Hctz 37.5-25 mg Cp] metFORMIN [Glucophage] 500 mg PO BID 08/20/18 08/20/18 08/20/18 History traZODone [Desyrel] 50 mg PO QHS 08/20/18 08/20/18 08/20/18 History Active Meds: Active Medications Acetaminophen (Tylenol) 650 mg PO Q4H PRN PRN Reason: Pain MILD(1-3)/Fever >100.5/SNOW Aspirin (Halfprin Ec) 81 mg PO DAILY [facility], [facility] Last Admin: 08/21/18 10:28 Dose: Not Given Documented by: Dextrose (D50w (25gm) Syringe) 50 ml IV PRN PRN PRN Reason: Hypoglycemia Enoxaparin Sodium (Lovenox) 40 mg SUB-Q QDAY@1000 SUNG Sodium Chloride (Nacl 0.9% 1000 Ml) 1,000 mls @ 100 mls/hr IV DIRECT SUNG Last Admin: 08/21/18 10:19 Dose: 100 mls/hr Documented by: Insulin Human Lispro (Humalog) 0 unit SUB-Q Q4HR SUNG; Protocol Last Admin: 08/21/18 05:59 Dose: 6 unit Documented by: Ondansetron HCl (Zofran) 4 mg IV Q4H PRN PRN Reason: Nausea And Vomiting Sodium Chloride (Sodium Chloride Flush Syringe 10 Ml) 10 ml IV BID SUNG Last Admin: 08/21/18 10:27 Dose: 10 ml Documented by: Sodium Chloride (Sodium Chloride Flush Syringe 10 Ml) 10 ml IV PRN PRN PRN Reason: LINE FLUSH Review of Systems ROS unobtainable: due to mental status Physical Examination Vital Signs Pulse Resp 113 H 14 08/20/18 18:18 08/20/18 18:18 General appearance: other (lethargic, nonresponsive) Cardiac: Positive: Reg Rate and Rhythm, S1/S2 Lungs: Positive: Decreased Breath Sounds Neuro: Positive: Other (unable to assess) Skin: Negative: Rash Extremities: Absent: edema Results 08/21/18 05:55 08/21/18 05:55 Cardiac Enzymes 08/20/18 08/21/18 08/21/18 Range/Units 18:18 05:55 09:18 AST 54 H (5-40) units/L CK-MB (CK-2) 13.9 H 15.0 H (0.0-4.0) ng/mL Coagulation 08/20/18 Range/Units 18:18 PT 13.8 (12.2-14.9) Sec. INR 1.00 (0.87-1.13) APTT 27.4 (24.2-36.6) Sec. Lipids 08/20/18 Range/Units 18:18 Triglycerides 137 (2-149) mg/dL Cholesterol 129 (50-199) mg/dL HDL Cholesterol 41 (40-59) mg/dL Cholesterol/HDL Ratio 3.14 % CBC 08/20/18 08/21/18 Range/Units 18:18 05:55 WBC 32.1 H 29.1 H (4.5-11.0) K/mm3 RBC 2.89 L 3.12 L (3.65-5.03) M/mm3 Hgb 9.7 L 10.2 (10.1-14.3) gm/dl Hct 28.0 L 29.5 L (30.3-42.9) % Plt Count 237 199 (140-440) K/mm3 Lymph # Final Cleaner Comprehensive Metabolic Panel 08/20/18 08/21/18 Range/Units 18:18 05:55 Sodium 137 142 (137-145) mmol/L Potassium 4.9 4.5 (3.6-5.0) mmol/L Chloride 101.5 106.0 (98-107) mmol/L Carbon Dioxide 19 L 22 (22-30) mmol/L BUN 26 H 24 H (7-17) mg/dL Creatinine 1.8 H 1.3 H (0.7-1.2) mg/dL Glucose 461 H 272 H (65-100) mg/dL Calcium 9.2 8.3 L (8.4-10.2) mg/dL Direct Bilirubin 0.7 H (0-0.2) mg/dL Indirect Bilirubin 3.0 mg/dL AST 54 H (5-40) units/L ALT 28 (7-56) units/L Alkaline Phosphatase 93 (35-129) units/L Total Protein 7.6 (6.3-8.2) g/dL Albumin 4.2 (3.9-5) g/dL - Imaging and Cardiology Echo: pending EKG: report reviewed, image reviewed EKG interpretations - Telemetry EKG Rhythm: Sinus Rhythm - EKG Sinus rhythms and dysrhythmias: sinus rhythm AV and intraventricular conduction: right bundle branch block Assessment and Plan Troponin elevation pattern appears c/w NSTEMI type II. Cont to trend Americo and repeat ECG in AM. Obtain echo. Cont supportive measures and management of other non cardiac issues per primary. The patient has been seen in conjunction with Dr. Cedeño who agrees with the assessment and plan of care. - Patient Problems (1) Altered mental status Current Visit: Yes Status: Acute (2) Accidental drug ingestion Current Visit: Yes Status: Acute (3) Septic shock Current Visit: Yes Status: Suspected (4) NSTEMI (non-ST elevated myocardial infarction) Current Visit: Yes Status: Acute (5) Sickle cell anemia Current Visit: Yes Status: Chronic (6) Diabetes mellitus with hyperglycemia Current Visit: Yes Status: Chronic (7) History of CVA (cerebrovascular accident) Current Visit: Yes Status: Chronic (8) GELA (acute kidney injury) Current Visit: Yes Status: Acute (9) Hypothermia Current Visit: Yes Status: Acute
[2018-08-21] MEDS ORDERED: MILK OF MAGNESIA PO PRN (15:28)
[2018-08-21] MEDS ORDERED: DULCOLAX PR PRN (15:28)
[2018-08-21] MEDS ORDERED: NACL 0.9% 500 ML 500 ML IV NR (15:31)
[2018-08-21] MEDS: ASPIRIN PR SCH (16:30)
[2018-08-21 16:38] LABS: Bilirubin,Direct 0.8 mg/dL (0-0.2)
--- NOTE | 2018-08-21 17:16 | Progress Note ---
Assessment and Plan Assessment and plan: 53-year-old a history of hypertension, sickle cell, hyperlipidemia, diabetes, CVA, legally blind is brought to the emergency room for decreased responsiveness. 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 due to SS crisis? acute anoxic Encephalopathy ? Toxic encephalopathy Accidental dilaudid OD No evidence of infection, UA and CXR neg Sickle cell crisis NSTEMI - likely related to crisis Dm GELA vasomotor nephropathy Plan Type and screen, check for markers of hemolysis, hematology consult cont IVF, renal function improving optimize meds for chronic conditions ASA MA, statin when able to take PO , stat repeat head CT, Neuro consult, MR brain, , carotid dopplers Case dw Neurologist History Interval history: Per her sister she is not moving her right side no fever no vomiting no cough no sob she is still altered, has not been speaking or obeying commands Hospitalist Physical - Physical exam Narrative exam: General.: appears ill, non reponsive HEENT: Moist mucous membranes, extraocular muscles intact, no lymphadenopathy Neck: supple Cardiac: S1-S2 heard Lungs: clear to auscultation bilaterally Abdomen: soft , nontender, nondistended, bowel sounds positive Extremities: no edema clubbing or cyanosis Skin: no rash or lesions Neurologic: does not obey commands, non verbal, only moving her left side, R side is weak, pupils reactive, but upward gaze Psych: not responsive, does not obey commands, and is currently not verbal - Constitutional Vitals: Temp Pulse Resp BP Pulse Ox 99.0 F 90 15 113/49 99 08/21/18 16:00 08/21/18 10:00 08/21/18 12:00 08/21/18 02:20 08/21/18 12:00 General appearance: Present: other (lethargic, nonresponsive) Results - Labs CBC & Chem 7: 08/22/18 05:13 08/21/18 05:55 Labs: Laboratory Last Values WBC 29.1 K/mm3 (4.5-11.0) H 08/21/18 05:55 RBC 3.12 M/mm3 (3.65-5.03) L 08/21/18 05:55 Hgb 10.2 gm/dl (10.1-14.3) 08/21/18 05:55 Hct 29.5 % (30.3-42.9) L 08/21/18 05:55 MCV 95 fl (79-97) 08/21/18 05:55 MCH 33 pg (28-32) H 08/21/18 05:55 MCHC 34 % (30-34) 08/21/18 05:55 RDW 19.0 % (13.2-15.2) H 08/21/18 05:55 Plt Count 199 K/mm3 (140-440) 08/21/18 05:55 [place] % (Auto) [employer] 08/21/18 05:55 Lymph # U[employer] 08/20/18 18:18 Add Manual Diff Complete 08/21/18 05:55 Total Counted 100 08/21/18 05:55 Seg Neuts % (Manual) 62.0 % (40.0-70.0) 08/21/18 05:55 Band Neutrophils % 14.0 % 08/21/18 05:55 Lymphocytes % (Manual) 12.0 % (13.4-35.0) L 08/21/18 05:55 Reactive Lymphs % (Man) 0 % 08/21/18 05:55 Monocytes % (Manual) 8.0 % (0.0-7.3) H 08/21/18 05:55 Eosinophils % (Manual) 0 % (0.0-4.3) 08/21/18 05:55 Basophils % (Manual) 0 % (0.0-1.8) 08/21/18 05:55 Metamyelocytes % 0 % 08/21/18 05:55 Myelocytes % 4.0 % 08/21/18 05:55 Promyelocytes % 0 % 08/21/18 05:55 Blast Cells % 0 % 08/21/18 05:55 Nucleated RBC % 4.0 % (0.0-0.9) H 08/21/18 05:55 Seg Neutrophils # Man 18.0 K/mm3 (1.8-7.7) H 08/21/18 05:55 Band Neutrophils # 4.1 K/mm3 08/21/18 05:55 Lymphocytes # (Manual) 3.5 K/mm3 (1.2-5.4) 08/21/18 05:55 Abs React Lymphs (Man) 0.0 K/mm3 08/21/18 05:55 Monocytes # (Manual) 2.3 K/mm3 (0.0-0.8) H 08/21/18 05:55 Eosinophils # (Manual) 0.0 K/mm3 (0.0-0.4) 08/21/18 05:55 Basophils # (Manual) 0.0 K/mm3 (0.0-0.1) 08/21/18 05:55 Metamyelocytes # 0.0 K/mm3 08/21/18 05:55 Myelocytes # 1.2 K/mm3 08/21/18 05:55 Promyelocytes # 0.0 K/mm3 08/21/18 05:55 Blast Cells # 0.0 K/mm3 08/21/18 05:55 WBC Morphology Not Reportable 08/21/18 05:55 Hypersegmented Neuts Not Reportable 08/21/18 05:55 Hyposegmented Neuts Not Reportable 08/21/18 05:55 Hypogranular Neuts Not Reportable 08/21/18 05:55 Smudge Cells Not Reportable 08/21/18 05:55 Toxic Granulation Not Reportable 08/21/18 05:55 Toxic Vacuolation Not Reportable 08/21/18 05:55 Dohle Bodies Not Reportable 08/21/18 05:55 Pelger-Huet Anomaly Not Reportable 08/21/18 05:55 Christ Rods Not Reportable 08/21/18 05:55 Platelet Estimate Appears normal 08/21/18 05:55 Clumped Platelets Not Reportable 08/21/18 05:55 Plt Clumps, EDTA Not Reportable 08/21/18 05:55 Large Platelets Not Reportable 08/21/18 05:55 Giant Platelets Not Reportable 08/21/18 05:55 Platelet Satelliting Not Reportable 08/21/18 05:55 Plt Morphology Comment Not Reportable 08/21/18 05:55 RBC Morphology Not Reportable 08/21/18 05:55 Dimorphic RBCs Not Reportable 08/21/18 05:55 Polychromasia 1+ 08/21/18 05:55 Hypochromasia 1+ 08/21/18 05:55 Poikilocytosis 3+ 08/21/18 05:55 Anisocytosis 1+ 08/21/18 05:55 Microcytosis Not Reportable 08/21/18 05:55 Macrocytosis Not Reportable 08/21/18 05:55 Spherocytes Not Reportable 08/21/18 05:55 Pappenheimer Bodies Not Reportable 08/21/18 05:55 Sickle Cells 1+ 08/21/18 05:55 Target Cells 1+ 08/21/18 05:55 Tear Drop Cells Not Reportable 08/21/18 05:55 Ovalocytes Not Reportable 08/21/18 05:55 Helmet Cells Not Reportable 08/21/18 05:55 [place] Bodies Not Reportable 08/21/18 05:55 [place] Rings Not Reportable 08/21/18 05:55 [place] Cells Not Reportable 08/21/18 05:55 Bite Cells Not Reportable 08/21/18 05:55 Crenated Cell Not Reportable 08/21/18 05:55 Elliptocytes Not Reportable 08/21/18 05:55 Acanthocytes (Spur) Not Reportable 08/21/18 05:55 Rouleaux Not Reportable 08/21/18 05:55 Hemoglobin C Crystals Not Reportable 08/21/18 05:55 Schistocytes Not Reportable 08/21/18 05:55 Malaria parasites Not Reportable 08/21/18 05:55 Percent Retic 6.94 % (0.78-2.58) H 08/21/18 15:47 Ju[place]os Bodies Not Reportable 08/21/18 05:55 Hem Pathologist Commnt No 08/21/18 05:55 PT 13.8 Sec. (12.2-14.9) 08/20/18 18:18 INR 1.00 (0.87-1.13) 08/20/18 18:18 APTT 27.4 Sec. (24.2-36.6) 08/20/18 18:18 Sodium 142 mmol/L (137-145) 08/21/18 05:55 Potassium 4.5 mmol/L (3.6-5.0) 08/21/18 05:55 Chloride 106.0 mmol/L (98-107) 08/21/18 05:55 Carbon Dioxide 22 mmol/L (22-30) 08/21/18 05:55 Anion Gap 19 mmol/L 08/21/18 05:55 BUN 24 mg/dL (7-17) H 08/21/18 05:55 Creatinine 1.3 mg/dL (0.7-1.2) H 08/21/18 05:55 Estimated GFR 51 ml/min 08/21/18 05:55 BUN/Creatinine Ratio 18 % 08/21/18 05:55 Glucose 272 mg/dL (65-100) H 08/21/18 05:55 Lactic Acid 1.50 mmol/L (0.7-2.0) 08/20/18 21:46 Calcium 8.3 mg/dL (8.4-10.2) L 08/21/18 05:55 Total Bilirubin 2.30 mg/dL (0.1-1.2) H 08/21/18 15:47 Direct Bilirubin 0.8 mg/dL (0-0.2) H 08/21/18 15:47 Indirect Bilirubin 1.5 mg/dL 08/21/18 15:47 AST 54 units/L (5-40) H 08/20/18 18:18 ALT 28 units/L (7-56) 08/20/18 18:18 Alkaline Phosphatase 93 units/L (35-129) 08/20/18 18:18 Ammonia 66.0 umol/L (25-60) H 08/20/18 18:44 Lactate Dehydrogenase 544 units/L (91-180) H 08/21/18 15:47 Total Creatine Kinase 201 units/L (30-135) H 08/21/18 09:18 CK-MB (CK-2) 15.0 ng/mL (0.0-4.0) H 08/21/18 09:18 CK-MB (CK-2) Rel Index 7.4 (0-4) H 08/21/18 09:18 Troponin T 0.320 ng/mL (0.00-0.029) H* D 08/21/18 09:18 Total Protein 7.6 g/dL (6.3-8.2) 08/20/18 18:18 Albumin 4.2 g/dL (3.9-5) 08/20/18 18:18 Albumin/Globulin Ratio 1.2 % 08/20/18 18:18 Triglycerides 137 mg/dL (2-149) 08/20/18 18:18 Cholesterol 129 mg/dL (50-199) 08/20/18 18:18 LDL Cholesterol Direct 79 mg/dL (50-130) 08/20/18 18:18 HDL Cholesterol 41 mg/dL (40-59) 08/20/18 18:18 Cholesterol/HDL Ratio 3.14 % 08/20/18 18:18 Urine Color [place] (Yellow) 08/20/18 19:50 Urine Turbidity Clear (Clear) 08/20/18 19:50 Urine pH 5.0 (5.0-7.0) 08/20/18 19:50 Ur Specific [place] 1.011 (1.003-1.030) 08/20/18 19:50 Urine Protein 100 mg/dl mg/dL (Negative) 08/20/18 19:50 Urine Glucose (UA) >=500 mg/dL (Negative) 08/20/18 19:50 Urine Ketones Neg mg/dL (Negative) 08/20/18 19:50 Urine Blood Mod (Negative) 08/20/18 19:50 Urine Nitrite Neg (Negative) 08/20/18 19:50 Urine Bilirubin Neg (Negative) 08/20/18 19:50 Urine Urobilinogen 4.0 mg/dL (<2.0) 08/20/18 19:50 Ur Leukocyte Esterase Neg (Negative) 08/20/18 19:50 Urine WBC (Auto) 3.0 /HPF (0.0-6.0) 08/20/18 19:50 Urine RBC (Auto) 2.0 /HPF (0.0-6.0) 08/20/18 19:50 U Epithel Cells (Auto) < 1.0 /HPF (0-13.0) 08/20/18 19:50 Urine Bacteria (Auto) 1+ /HPF (Negative) 08/20/18 19:50 Hyaline Casts 24 /LPF 08/20/18 19:50 Urine Mucus Few /HPF 08/20/18 19:50 Salicylates < 0.3 mg/dL (2.8-20.0) L 08/20/18 18:18 Urine Opiates Screen Presumptive negative 08/20/18 19:50 Urine Methadone Screen Presumptive negative 08/20/18 19:50 Acetaminophen < 5.0 ug/mL (10.0-30.0) L 08/20/18 18:18 Ur Barbiturates Screen Presumptive negative 08/20/18 19:50 Ur Phencyclidine Scrn Presumptive negative 08/20/18 19:50 Ur Amphetamines Screen Presumptive negative 08/20/18 19:50 U Benzodiazepines Scrn Presumptive negative 08/20/18 19:50 Urine Cocaine Screen Presumptive negative 08/20/18 19:50 U Marijuana (THC) Screen Presumptive negative 08/20/18 19:50 Drugs of Abuse Note Disclamer 08/20/18 19:50 Plasma/Serum Alcohol < 0.01 % (0-0.07) 08/20/18 18:18 Blood Type A POSITIVE 08/21/18 15:47 Antibody Screen Negative 08/21/18 15:47 Crossmatch See Detail 08/21/18 15:47 Nutrition/Malnutrition Assess - Dietary Evaluation Nutrition/Malnutrition Findings: Nutrition Notes Start: 08/21/18 13:31 Freq: Status: Active Protocol: Document 08/21/18 13:31 BEULAH (Rec: 08/21/18 13:41 BEULAH [id number] [email or web address]) Nutrition Notes 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 She is sleeping soundly at time of visit (12:15), but her sister is able to answer assessment questions. Pt has been under a lot of stress lately and may have taken too much medication. Her PO intake has been minimal for the past few days. Pt takes oral DM medications (no insulin). 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 No Is Patient Ambulatory and/or Out of Bed No REE-([place]-confined to bed) 1890.228 Kcal/Kg value to use for calculation 17 Approximate Energy Requirements Using 1632 kcal/Kg Calculation Used for Recommendations Kcal/kg Additional Notes Pro needs 0.8-1g/kg adjBW: 62- 78g/day Fluid needs 1ml/kcal Nutrition Intervention Change Diet Order: Continue current diet order Add Supplement/Snack (indicate name/kcal Glucerna BID /protein ) Provides kCal: 440 Provides Protein (gm) 20 Goal #1 PO intake of meals plus ONS to meet at least 75% of energy and pro needs Anticipated Discharge Needs: Unable to identify at this time Follow-Up By: 08/24/18 Additional Comments F/U: intakes
--- NOTE | 2018-08-21 17:19 | Consultation ---
History of Present Illness Consult date: 08/21/18 Requesting physician: UARY DE LUNA Reason for Consult: acute right hemiparesis and AMS History of present illness: 53-year-old right handed female with history of hypertension, sickle cell, hyperlipidemia, diabetes, CVA, legally blind is brought to the emergency room for decreased responsiveness. The pt. just moved in with her sister this past month. Despite being blind from a previous bilateral occipital lobe stroke 6 years ago, she has been independent, ambulatory and taking care of her own ADLs. The previous CVA only affected her vision and recent memory.When found unresponsive by her sister, EMS was called and blood sugar was found to be >500. The pt. was apparently agitated in the ambulance but was obtunded by the time she reached the ER. Her temperature was 93 with BP of 66/38. Sepsis protocol was initiated. CT brain reveals only the chronic stroke from 6 years ago, no acute findings. The pt. has had no sickle cell crises since the previous stroke. Past History Past Medical History: diabetes, hypertension, hyperlipidemia, stroke, other (sickel cell anemia) Social history: , lives with family Family history: hypertension Medications and Allergies Allergies Allergy/AdvReac Type Severity Reaction Status Date / Time No Known Allergies Allergy Unverified 08/20/18 19:24 Home Medications Medication Instructions Recorded Confirmed Last Taken Type Aspirin [Aspir-Low] 81 mg PO DAILY 08/20/18 08/20/18 08/20/18 History AtorvaSTATin [Lipitor] 10 mg PO QHS 08/20/18 08/20/18 08/20/18 History Folic Acid [Folvite] 1 mg PO QDAY 08/20/18 08/20/18 08/20/18 History Gabapentin [Neurontin] 300 mg PO Q8HR 08/20/18 08/20/18 08/20/18 History HYDROmorphone [Dilaudid] 2 mg PO Q6HR 08/20/18 08/20/18 08/20/18 History Hydroxyurea [Hydrea] 500 mg PO DAILY 08/20/18 08/20/18 08/20/18 History Linagliptin [Tradjenta] 5 mg PO QDAY 08/20/18 08/20/18 08/20/18 History Losartan [Cozaar] 25 mg PO QDAY 03/04/3008/20/18 08/20/18 History Methylphenidate [Ritalin] 10 mg PO DAILY 08/20/18 08/20/18 08/20/18 History Omeprazole 40 mg PO DAILY 08/20/18 08/20/18 08/20/18 History Sertraline [Zoloft] 100 mg PO QDAY 08/20/18 08/20/18 08/20/18 History Triamterene/Hydrochlorothiazid 1 each PO DAILY 08/20/18 08/20/18 08/20/18 History [Triamterene-Hctz 37.5-25 mg Cp] metFORMIN [Glucophage] 500 mg PO BID 08/20/18 08/20/18 08/20/18 History traZODone [Desyrel] 50 mg PO QHS 08/20/18 08/20/18 08/20/18 History Active Meds: Active Medications Acetaminophen (Tylenol) 650 mg PO Q4H PRN PRN Reason: Pain MILD(1-3)/Fever >100.5/SNOW Aspirin (Halfprin Ec) 81 mg PO DAILY [facility] Last Admin: 08/21/18 10:28 Dose: Not Given Documented by: Aspirin (Aspirin) 300 mg ID QDAY SUNG Bisacodyl (Dulcolax) 10 mg ID QDAY PRN PRN Reason: Constipation unrelieved by MOM Dextrose (D50w (25gm) Syringe) 50 ml IV PRN PRN PRN Reason: Hypoglycemia Enoxaparin Sodium (Lovenox) 40 mg SUB-Q QDAY@1000 USNG Folic Acid (Folvite) 1 mg PO QDAY [facility] Sodium Chloride (Nacl 0.9% 1000 Ml) 1,000 mls @ 100 mls/hr IV DIRECT [facility] Last Admin: 08/21/18 10:19 Dose: 100 mls/hr Documented by: Sodium Chloride (Nacl 0.9% 500 Ml) 500 mls @ 0 mls/hr IV ONCE NR Stop: 08/21/18 23:59 Insulin Human Lispro (Humalog) 0 unit SUB-Q Q4HR [facility]; Protocol Last Admin: 08/21/18 05:59 Dose: 6 unit Documented by: Magnesium Hydroxide (Milk Of Magnesia) 30 ml PO Q4H PRN PRN Reason: Constipation Multivitamins (Theragran Tab) 1 each PO QDAY [facility] Ondansetron HCl (Zofran) 4 mg IV Q4H PRN PRN Reason: Nausea And Vomiting Senna (Senokot) 17.2 mg PO QHS [facility] Sodium Chloride (Sodium Chloride Flush Syringe 10 Ml) 10 ml IV BID [facility] Last Admin: 08/21/18 10:27 Dose: 10 ml Documented by: Sodium Chloride (Sodium Chloride Flush Syringe 10 Ml) 10 ml IV PRN PRN PRN Reason: LINE FLUSH Review of Systems ROS unobtainable: due to mental status Physical Examination - Vital Signs Vital Signs: Vital Signs Pulse Resp 113 H 14 08/20/18 18:18 08/20/18 18:18 - Physical Exam Narrative exam: General - Lying in bed, unresponsive. Spontaneously opens eyes. Maintaining oxygenation on her own. Neurological exam - no verbal output. 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 Eyes are yoked. Face - mild right flattening. Motor - Moves left arm and leg spontaneously. No movement in right extremities, no movement with painful stimuli. Flaccid. Reflexes - +1 throughout Sensory - grimaces to pain. - Assessment Assessment Interval: 24 hours post onset of symptoms +-20 minutes - Level of Consciousness 1a. Level of Consciousness: resp stimuli/obtunded - LOC Questions 1b. LOC Questions: answers no questions correctly - LOC Command 1c. LOC Commands: performs no tasks correctly - Best Gaze 2. Best Gaze: normal - Visual 3. Visual: no visual loss - Facial Palsy 4. Facial Palsy: minor paralysis - Motor Arm 5a. Motor Arm Left: no gravity effort 5b. Motor Arm Right: no movement - Motor Leg 6a. Motor Leg Left: some gravity effort 6b. Motor Leg Right: no movement - Limb Ataxia 7. Limb Ataxia: absent - Sensory 8. Sensory: coma/unresponsive - Best Language 9. Best Language: coma/unresponsive - Dysarthria 10. Dysarthria: intubated or other barrier - Extinction and Inattention 11. Extinction/Inattention: no abnormality - Scoring Total Score: 25 Stroke Severity: Severe Stroke Results - Laboratory Findings CBC and BMP: 08/21/18 05:55 08/21/18 05:55 Abnormal Lab Findings: Abnormal Labs 08/20/18 08/20/18 08/20/18 18:18 18:18 18:18 WBC 32.1 H RBC 2.89 L Hgb 9.7 L Hct 28.0 L MCH 34 H MCHC 35 H RDW 18.9 H Seg Neuts % (Manual) 82.5 H Lymphocytes % (Manual) 8.0 L Monocytes % (Manual) Nucleated RBC % 1.0 H Seg Neutrophils # Man 26.5 H Monocytes # (Manual) 2.1 H Basophils # (Manual) 0.2 H Percent Retic Carbon Dioxide 19 L BUN 26 H Creatinine 1.8 H Glucose 461 H Lactic Acid Calcium Total Bilirubin 3.70 H Direct Bilirubin 0.7 H AST 54 H Ammonia Lactate Dehydrogenase Total Creatine Kinase CK-MB (CK-2) CK-MB (CK-2) Rel Index Troponin T 0.035 H Salicylates < 0.3 L Acetaminophen Crossmatch 08/20/18 08/20/18 08/20/18 18:18 18:44 18:44 WBC RBC Hgb Hct MCH MCHC RDW Seg Neuts % (Manual) Lymphocytes % (Manual) Monocytes % (Manual) Nucleated RBC % Seg Neutrophils # Man Monocytes # (Manual) Basophils # (Manual) Percent Retic Carbon Dioxide BUN Creatinine Glucose Lactic Acid 6.60 H* Calcium Total Bilirubin Direct Bilirubin AST Ammonia 66.0 H Lactate Dehydrogenase Total Creatine Kinase CK-MB (CK-2) CK-MB (CK-2) Rel Index Troponin T Salicylates Acetaminophen < 5.0 L Crossmatch 08/20/18 08/21/18 08/21/18 20:12 05:55 05:55 WBC 29.1 H RBC 3.12 L Hgb Hct 29.5 L MCH 33 H MCHC RDW 19.0 H Seg Neuts % (Manual) Lymphocytes % (Manual) 12.0 L Monocytes % (Manual) 8.0 H Nucleated RBC % 4.0 H Seg Neutrophils # Man 18.0 H Monocytes # (Manual) 2.3 H Basophils # (Manual) Percent Retic 8.26 H Carbon Dioxide BUN 24 H Creatinine 1.3 H Glucose 272 H Lactic Acid Calcium 8.3 L Total Bilirubin Direct Bilirubin AST Ammonia Lactate Dehydrogenase Total Creatine Kinase CK-MB (CK-2) CK-MB (CK-2) Rel Index Troponin T Salicylates Acetaminophen Crossmatch 08/21/18 08/21/18 08/21/18 05:55 09:18 15:47 WBC RBC Hgb Hct MCH MCHC RDW Seg Neuts % (Manual) Lymphocytes % (Manual) Monocytes % (Manual) Nucleated RBC % Seg Neutrophils # Man Monocytes # (Manual) Basophils # (Manual) Percent Retic 6.94 H Carbon Dioxide BUN Creatinine Glucose Lactic Acid Calcium Total Bilirubin Direct Bilirubin AST Ammonia Lactate Dehydrogenase Total Creatine Kinase 183 H 201 H CK-MB (CK-2) 13.9 H 15.0 H CK-MB (CK-2) Rel Index 7.5 H 7.4 H Troponin T 0.519 H* D 0.320 H* D Salicylates Acetaminophen Crossmatch 08/21/18 08/21/18 15:47 15:47 WBC RBC Hgb Hct MCH MCHC RDW Seg Neuts % (Manual) Lymphocytes % (Manual) Monocytes % (Manual) Nucleated RBC % Seg Neutrophils # Man Monocytes # (Manual) Basophils # (Manual) Percent Retic Carbon Dioxide BUN Creatinine Glucose Lactic Acid Calcium Total Bilirubin 2.30 H Direct Bilirubin 0.8 H AST Ammonia Lactate Dehydrogenase 544 H Total Creatine Kinase CK-MB (CK-2) CK-MB (CK-2) Rel Index Troponin T Salicylates Acetaminophen Crossmatch See Detail Assessment and Plan 53 year old female with sickle cell anemia and past history of stroke, which left her blind in both eyes, affecting the bilateral occipital lobes. Also carries stroke risk factors of htn., diabetes and HLP. Presented yesterday with obtundation, hypoglycemia, hypothermia and right hemiparesis. CT brain was neg. for an acute event. WBC is elevated at 29. Plan - MRI brain thyroid panel; remaining stroke work-up in place.
--- NOTE | 2018-08-21 20:10 | Magnetic Resonance Report ---
PROCEDURE: MR MRA/MRV HEAD WO CON TECHNIQUE: HISTORY: cva COMPARISONS: FINDINGS: MRA of the brain was performed and data was reformatted in multiple projections. The examin ation is very limited by patient motion. In the posterior circulation both vertebral arteries are patent. The basilar artery is patent. Both p osterior cerebral arteries are small. A are patent proximally. The left posterior cerebral artery is not well-seen distally and may be occluded. The right posterior cerebral artery is diffuse atheroscle rotic but appears patent. In the anterior circulation the internal carotid arteries are widely patent. There is a mild stenosis of the proximal M1 segment of the left middle cerebral artery of the vessel appears patent distally. The right middle cerebral artery appears widely patent. Both anterior cerebral arteries are patent. IMPRESSION: Nonvisualization of left distal posterior cerebral artery, which may be occluded Atherosclerosis of right posterior cerebral artery, although the vessel appears to be patent Mild stenosis of proximal aspect of M1 segment of left middle cerebral artery This document is electronically signed by Yasmany Monsivais MD., August 21 2018 08:08:26 PM ET
[2018-08-21 21:01] LABS: Free T4 (Free Thyroxine) 1.16 ng/dL (0.76-1.46)
[2018-08-21 21:23] LABS: Amphetamine Screen,Urine PRESUMPTIVE NEGATIVE; Benzodiazepines Screen,Urine PRESUMPTIVE NEGATIVE; Cannabinoid Screen,Urine PRESUMPTIVE NEGATIVE; Cocaine Screen,Urine PRESUMPTIVE NEGATIVE; Methadone Screen,Urine PRESUMPTIVE NEGATIVE; Opiate Screen,Urine PRESUMPTIVE NEGATIVE
[2018-08-21] MEDS ORDERED: SENOKOT PO SCH (22:00)
[2018-08-22] MEDS: HumaLOG SUB-Q SCH ×6 (02:15→10:59)
[2018-08-22] MEDS: SODIUM CHLORIDE FLUSH SYRINGE 10 ML IV SCH ×2 (02:41→11:00)
[2018-08-22 05:49] LABS: Hematocrit 28.4 % (30.3-42.9); Mean Corpuscular HGB Conc 35 % (30-34); Mean Corpuscular Volume 95 fl (79-97); Platelet Count 259 K/mm3 (140-440); Red Blood Count 2.99 M/mm3 (3.65-5.03); Red Cell Distribution Width 19.5 % (13.2-15.2)
[2018-08-22 06:03] LABS: Creatine Kinase MB 7.5 ng/mL (0.0-4.0)
[2018-08-22 06:51] LABS: Band Neutrophils # (Manual) 1.6 K/mm3; Basophils % (Manual) 0 % (0.0-1.8); Eosinophils % (Manual) 0 % (0.0-4.3); Monocytes % (Manual) 0.5 % (0.0-7.3); Promyelocytes # (Manual) 0.4 K/mm3; Total Cells Counted 200
[2018-08-22] MEDS: NACL 0.9% 1000 ML 1,000 ML IV SCH (06:51)
[2018-08-22 06:56] LABS: Sickle Cells 2+
[2018-08-22 06:57] LABS: Anisocytosis 1+; Hypochromasia 1+; Macrocytosis 2+; Platelet Estimate Consistent w Auto; Schistocytes Few; Stomatocytes Few; Target Cells 2+
[2018-08-22 06:58] LABS: Hypersegmented Neutrophils Few
--- NOTE | 2018-08-22 07:40 | Hem/Onc Progress Note ---
Assessment and Plan 1. Sickle cell. The patient was on folic acid. We will continue the same. 2. Leukocytosis. We will follow the trend. This may be reactive. 3. Encephalopathy medication related. 4. Renal impairment. 5. Hyperlipidemia. 6. Diabetes. 7. History of cerebrovascular accident. 8. As per the notes mention of being legally blind. 9. As per the medical note the patient had taken more Dilaudid. MRI brain was done during this admission. Nonvisualization of the left distal posterior cerebral artery, which may be occluded. 10. Abdomen CT, no acute pathology. 11. Head CT, no acute intracranial process seen, remote areas of infarct in both occipital lobes. 12. At this time, based on the lab, it is not clear if sickle cell has a role in her mentation, it is likely the medication, which she took. The patient's MCV is not elevated, suggesting she may not be taking Hydrea. I will leave this with the hospitalist team. Neurology consult has been obtained. 08/22 - later I was called that there is cerebral edema and mannitol will be tried and transferred to tertiary center - Patient Problems (1) Sickle cell anemia Status: Chronic Subjective Date of service: 08/22/18 Principal diagnosis: h/o sickle cell Interval history: not responsive Objective - Exam Narrative Exam: un responsive to pain - Constitutional Vitals: Last Vital Signs Temp 98.9 F 08/22/18 04:00 Pulse 109 H 08/22/18 00:00 Resp 24 08/22/18 00:00 BP 113/49 08/21/18 02:20 Pulse Ox 93 08/22/18 04:17 General appearance: other (not responding) Performance status: 4-completely disabled - EENT Lymph node exam: negative cervical - Respiratory Respiratory effort: Positive: normal Respiratory: bilateral: diminished (poor effort) - Cardiovascular Heart Sounds: Present: S1 & S2 Extremities: No edema - Gastrointestinal General gastrointestinal: Present: soft Rectal Exam: deferred - Genitourinary Female genitourinary: Present: deferred - Integumentary Integumentary: warm - Musculoskeletal Musculoskeletal: generalized weakness - Neurologic Neurologic: other (not responding) - Labs Lab Results: Laboratory Results - last 24 hr 08/21/18 08/21/18 08/21/18 05:55 05:55 09:18 WBC RBC Hgb Hct MCV MCH MCHC RDW Plt Count [place] % (Auto) Add Manual Diff Complete Total Counted 100 Seg Neuts % (Manual) 62.0 Band Neutrophils % 14.0 Lymphocytes % (Manual) 12.0 L Reactive Lymphs % (Man) 0 Monocytes % (Manual) 8.0 H Eosinophils % (Manual) 0 Basophils % (Manual) 0 Metamyelocytes % 0 Myelocytes % 4.0 Promyelocytes % 0 Blast Cells % 0 Nucleated RBC % 4.0 H Seg Neutrophils # Man 18.0 H Band Neutrophils # 4.1 Lymphocytes # (Manual) 3.5 Abs React Lymphs (Man) 0.0 Monocytes # (Manual) 2.3 H Eosinophils # (Manual) 0.0 Basophils # (Manual) 0.0 Metamyelocytes # 0.0 Myelocytes # 1.2 Promyelocytes # 0.0 Blast Cells # 0.0 WBC Morphology Not Reportable Hypersegmented Neuts Not Reportable Hyposegmented Neuts Not Reportable Hypogranular Neuts Not Reportable Smudge Cells Not Reportable Toxic Granulation Not Reportable Toxic Vacuolation Not Reportable Dohle Bodies Not Reportable Pelger-Huet Anomaly Not Reportable Christ Rods Not Reportable Platelet Estimate Appears normal Clumped Platelets Not Reportable Plt Clumps, EDTA Not Reportable Large Platelets Not Reportable Giant Platelets Not Reportable Platelet Satelliting Not Reportable Plt Morphology Comment Not Reportable RBC Morphology Not Reportable Dimorphic RBCs Not Reportable Polychromasia 1+ Hypochromasia 1+ Poikilocytosis 3+ Anisocytosis 1+ Microcytosis Not Reportable Macrocytosis Not Reportable Spherocytes Not Reportable Pappenheimer Bodies Not Reportable Sickle Cells 1+ Target Cells 1+ Tear Drop Cells Not Reportable Ovalocytes Not Reportable Stomatocytes Helmet Cells Not Reportable [place] Bodies Not Reportable [place] Rings Not Reportable [place] Cells Not Reportable Bite Cells Not Reportable Crenated Cell Not Reportable Elliptocytes Not Reportable Acanthocytes (Spur) Not Reportable Rouleaux Not Reportable Hemoglobin C Crystals Not Reportable Schistocytes Not Reportable Malaria parasites Not Reportable Percent Retic Juancarlos Bodies Not Reportable Hem Pathologist Commnt No Hemoglobin A1c Total Bilirubin Direct Bilirubin Indirect Bilirubin Lactate Dehydrogenase Total Creatine Kinase 201 H CK-MB (CK-2) 15.0 H CK-MB (CK-2) Rel Index 7.4 H Troponin T 0.519 H* D 0.320 H* D TSH Free T4 Urine Opiates Screen Urine Methadone Screen Ur Barbiturates Screen Ur Phencyclidine Scrn Ur Amphetamines Screen U Benzodiazepines Scrn Urine Cocaine Screen U Marijuana (THC) Screen Drugs of Abuse Note Blood Type Antibody Screen Crossmatch 08/21/18 08/21/18 08/21/18 15:47 15:47 15:47 WBC RBC Hgb Hct MCV MCH MCHC RDW Plt Count [place] % (Auto) Add Manual Diff Total Counted Seg Neuts % (Manual) Band Neutrophils % Lymphocytes % (Manual) Reactive Lymphs % (Man) Monocytes % (Manual) Eosinophils % (Manual) Basophils % (Manual) Metamyelocytes % Myelocytes % Promyelocytes % Blast Cells % Nucleated RBC % Seg Neutrophils # Man Band Neutrophils # Lymphocytes # (Manual) Abs React Lymphs (Man) Monocytes # (Manual) Eosinophils # (Manual) Basophils # (Manual) Metamyelocytes # Myelocytes # Promyelocytes # Blast Cells # WBC Morphology Hypersegmented Neuts Hyposegmented Neuts Hypogranular Neuts Smudge Cells Toxic Granulation Toxic Vacuolation Dohle Bodies Pelger-Huet Anomaly Christ Rods Platelet Estimate Clumped Platelets Plt Clumps, EDTA Large Platelets Giant Platelets Platelet Satelliting Plt Morphology Comment RBC Morphology Dimorphic RBCs Polychromasia Hypochromasia Poikilocytosis Anisocytosis Microcytosis Macrocytosis Spherocytes Pappenheimer Bodies Sickle Cells Target Cells Tear Drop Cells Ovalocytes Stomatocytes Helmet Cells Luis-[place] Bodies [place] Jennifer Cells Bite Cells Crenated Cell Elliptocytes Acanthocytes (Spur) Rouleaux Hemoglobin C Crystals Schistocytes Malaria parasites Percent Retic 6.94 H Juancarlos Bodies Hem Pathologist Commnt Hemoglobin A1c Total Bilirubin 2.30 H Direct Bilirubin 0.8 H Indirect Bilirubin 1.5 Lactate Dehydrogenase 544 H Total Creatine Kinase CK-MB (CK-2) CK-MB (CK-2) Rel Index Troponin T TSH Free T4 Urine Opiates Screen Urine Methadone Screen Ur Barbiturates Screen Ur Phencyclidine Scrn Ur Amphetamines Screen U Benzodiazepines Scrn Urine Cocaine Screen U Marijuana (THC) Screen Drugs of Abuse Note Blood Type A POSITIVE Antibody Screen Negative Crossmatch See Detail 08/21/18 08/21/18 08/22/18 19:52 21:00 05:13 WBC RBC Hgb Hct MCV MCH MCHC RDW Plt Count [place] % (Auto) Add Manual Diff Total Counted Seg Neuts % (Manual) Band Neutrophils % Lymphocytes % (Manual) Reactive Lymphs % (Man) Monocytes % (Manual) Eosinophils % (Manual) Basophils % (Manual) Metamyelocytes % Myelocytes % Promyelocytes % Blast Cells % Nucleated RBC % Seg Neutrophils # Man Band Neutrophils # Lymphocytes # (Manual) Abs React Lymphs (Man) Monocytes # (Manual) Eosinophils # (Manual) Basophils # (Manual) Metamyelocytes # Myelocytes # Promyelocytes # Blast Cells # WBC Morphology Hypersegmented Neuts Hyposegmented Neuts Hypogranular Neuts Smudge Cells Toxic Granulation Toxic Vacuolation Dohle Bodies Pelger-Huet Anomaly Christ Rods Platelet Estimate Clumped Platelets Plt Clumps, EDTA Large Platelets Giant Platelets Platelet Satelliting Plt Morphology Comment RBC Morphology Dimorphic RBCs Polychromasia Hypochromasia Poikilocytosis Anisocytosis Microcytosis Macrocytosis Spherocytes Pappenheimer Bodies Sickle Cells Target Cells Tear Drop Cells Ovalocytes Stomatocytes Helmet Cells Luis-[place] Bodies [place] Cells Bite Cells Crenated Cell Elliptocytes Acanthocytes (Spur) Rouleaux Hemoglobin C Crystals Schistocytes Malaria parasites Percent Retic Juancarlos Bodies Hem Pathologist Commnt Hemoglobin A1c Total Bilirubin Direct Bilirubin Indirect Bilirubin Lactate Dehydrogenase 432 H Total Creatine Kinase 102 CK-MB (CK-2) 7.5 H CK-MB (CK-2) Rel Index 7.3 H Troponin T 0.274 H* TSH 0.582 Free T4 1.16 Urine Opiates Screen Presumptive negative Urine Methadone Screen Presumptive negative Ur Barbiturates Screen Presumptive negative Ur Phencyclidine Scrn Presumptive negative Ur Amphetamines Screen Presumptive negative U Benzodiazepines Scrn Presumptive negative Urine Cocaine Screen Presumptive negative U Marijuana (THC) Screen Presumptive negative Drugs of Abuse Note Disclamer Blood Type Antibody Screen Crossmatch 08/22/18 08/22/18 05:13 05:13 WBC 26.4 H RBC 2.99 L Hgb 10.0 L Hct 28.4 L MCV 95 MCH 33 H MCHC 35 H RDW 19.5 H Plt Count 259 [place] % (Auto) [place] [employer] Add Manual Diff Complete Total Counted 200 Seg Neuts % (Manual) 88.0 H Band Neutrophils % 6.0 Lymphocytes % (Manual) 3.5 L Reactive Lymphs % (Man) 0 Monocytes % (Manual) 0.5 Eosinophils % (Manual) 0 Basophils % (Manual) 0 Metamyelocytes % 0.5 Myelocytes % 0 Promyelocytes % 1.5 Blast Cells % 0 Nucleated RBC % 1.0 H Seg Neutrophils # Man 23.2 H Band Neutrophils # 1.6 Lymphocytes # (Manual) 0.9 L Abs React Lymphs (Man) 0.0 Monocytes # (Manual) 0.1 Eosinophils # (Manual) 0.0 Basophils # (Manual) 0.0 Metamyelocytes # 0.1 Myelocytes # 0.0 Promyelocytes # 0.4 Blast Cells # 0.0 WBC Morphology Not Reportable Hypersegmented Neuts Few Hyposegmented Neuts Not Reportable Hypogranular Neuts Not Reportable Smudge Cells Not Reportable Toxic Granulation Not Reportable Toxic Vacuolation Not Reportable Dohle Bodies Not Reportable Pelger-Huet Anomaly Not Reportable Christ Rods Not Reportable Platelet Estimate Consistent w auto Clumped Platelets Not Reportable Plt Clumps, EDTA Not Reportable Large Platelets Not Reportable Giant Platelets Not Reportable Platelet Satelliting Not Reportable Plt Morphology Comment Not Reportable RBC Morphology Not Reportable Dimorphic RBCs Not Reportable Polychromasia 1+ Hypochromasia 1+ Poikilocytosis Not Reportable Anisocytosis 1+ Microcytosis Not Reportable Macrocytosis 2+ Spherocytes Not Reportable Pappenheimer Bodies Not Reportable Sickle Cells 2+ Target Cells 2+ Tear Drop Cells Not Reportable Ovalocytes Not Reportable Stomatocytes Few Helmet Cells Not Reportable Luis-[place] Bodies Not Reportable [place] Rings Not Reportable Jennifer Cells Not Reportable Bite Cells Not Reportable Crenated Cell Not Reportable Elliptocytes Not Reportable Acanthocytes (Spur) Not Reportable Rouleaux Not Reportable Hemoglobin C Crystals Not Reportable Schistocytes Few Malaria parasites Not Reportable Percent Retic 6.74 H Juancarlos Bodies Not Reportable Hem Pathologist Commnt No Hemoglobin A1c 6.0 Total Bilirubin Direct Bilirubin Indirect Bilirubin Lactate Dehydrogenase Total Creatine Kinase CK-MB (CK-2) CK-MB (CK-2) Rel Index Troponin T TSH Free T4 Urine Opiates Screen Urine Methadone Screen Ur Barbiturates Screen Ur Phencyclidine Scrn Ur Amphetamines Screen U Benzodiazepines Scrn Urine Cocaine Screen U Marijuana (THC) Screen Drugs of Abuse Note Blood Type Antibody Screen Crossmatch Medications & Allergies - Medications Allergies/Adverse Reactions: Allergies No Known Allergies Allergy (Unverified 08/20/18 19:24) Home Medications: Home Medications Medication Instructions Recorded Confirmed Last Taken Type Aspirin [Aspir-Low] 81 mg PO DAILY 08/20/18 08/20/18 08/20/18 History AtorvaSTATin [Lipitor] 10 mg PO QHS 08/20/18 08/20/18 08/20/18 History Folic Acid [Folvite] 1 mg PO QDAY 08/20/18 08/20/18 08/20/18 History Gabapentin [Neurontin] 300 mg PO Q8HR 08/20/18 08/20/18 08/20/18 History HYDROmorphone [Dilaudid] 2 mg PO Q6HR 08/20/18 08/20/18 08/20/18 History Hydroxyurea [Hydrea] 500 mg PO DAILY 08/20/18 08/20/18 08/20/18 History Linagliptin [Tradjenta] 5 mg PO QDAY 08/20/18 08/20/18 08/20/18 History Losartan [Cozaar] 25 mg PO QDAY 08/20/18 08/20/18 08/20/18 History Methylphenidate [Ritalin] 10 mg PO DAILY 08/20/18 08/20/18 08/20/18 History Omeprazole 40 mg PO DAILY 08/20/18 08/20/18 08/20/18 History Sertraline [Zoloft] 100 mg PO QDAY 08/20/18 08/20/18 08/20/18 History Triamterene/Hydrochlorothiazid 1 each PO DAILY 08/20/18 08/20/18 08/20/18 History [Triamterene-Hctz 37.5-25 mg Cp] metFORMIN [Glucophage] 500 mg PO BID 08/20/18 08/20/18 08/20/18 History traZODone [Desyrel] 50 mg PO QHS 08/20/18 08/20/18 08/20/18 History Active Medications: Generic Name Dose Route Start Last Admin Trade Name Freq PRN Reason Stop Dose Admin Acetaminophen 650 mg 08/21/18 03:21 Tylenol PO Q4H PRN Pain MILD(1-3)/Fever >100.5/SNOW Aspirin 81 mg 08/21/18 10:00 08/21/18 10:28 Halfprin Ec PO Not Given DAILY [facility] Aspirin 300 mg 08/21/18 16:00 08/21/18 16:30 Aspirin LA Not Given QDAY [facility] Bisacodyl 10 mg 08/21/18 15:28 Dulcolax LA QDAY PRN Constipation unrelieved by MOM Dextrose 50 ml 08/21/18 04:00 D50w (25gm) Syringe IV PRN PRN Hypoglycemia Enoxaparin Sodium 40 mg 08/22/18 10:00 Lovenox SUB-Q QDAY@1000 SUNG Folic Acid 1 mg 08/22/18 10:00 Folvite PO QDAY [facility] Sodium Chloride 1,000 mls @ 100 mls/hr 08/21/18 04:00 08/22/18 06:51 Nacl 0.9% 1000 Ml IV 100 mls/hr DIRECT SUNG Administration Insulin Human Lispro 0 unit 08/21/18 06:00 08/22/18 06:49 Humalog SUB-Q 6 unit Q4HR SUNG Administration Protocol Magnesium Hydroxide 30 ml 08/21/18 15:28 Milk Of Magnesia PO Q4H PRN Constipation Multivitamins 1 each 08/22/18 10:00 Theragran Tab PO QDAY [facility] Ondansetron HCl 4 mg 08/21/18 03:21 Zofran IV Q4H PRN Nausea And Vomiting Senna 17.2 mg 08/21/18 22:00 08/22/18 02:40 Senokot PO Not Given QHS [facility] Sodium Chloride 10 ml 08/21/18 10:00 08/22/18 02:41 Sodium Chloride Flush Syringe 10 Ml IV 10 ml BID SUNG Administration Sodium Chloride 10 ml 08/21/18 03:21 Sodium Chloride Flush Syringe 10 Ml IV PRN PRN LINE FLUSH
--- NOTE | 2018-08-22 08:45 | Event Note ---
Date: 08/22/18 [id number]
[2018-08-22] MEDS ORDERED: FOLVITE PO SCH (10:00)
[2018-08-22] MEDS ORDERED: THERAGRAN Tab PO SCH (10:00)
[2018-08-22] MEDS ORDERED: LOVENOX SUB-Q SCH (10:00)
--- NOTE | 2018-08-22 10:08 | Progress Note ---
Assessment and Plan Assessment and plan: 53-year-old a history of hypertension, sickle cell, hyperlipidemia, diabetes, CVA, legally blind is brought to the emergency room for decreased responsiveness. which occured after accidental overdose of dilaudid at home, she took 12 pills, and it is not clear how many were dilaudid and which were her other meds she is verbal and ambulatory at baseline and able to eat and move her extremities, she had cva during SS crisis causing large cva and permanent blindness -she now has decreased responsiveness, and R sided weakness, hx taken from her sisters, she had accidentally taken more Dilaudid not realizing that she had already taken some labs show elevated bili concerning hemolysis PAST MEDICAL HISTORY: hypertension, sickle cell, hyperlipidemia, diabetes, CVA, legally blind Diagnosis acute CVA with hemorrhagic conversion Brain edema acute anoxic , toxic and metabolic Encephalopathy Accidental dilaudid OD No evidence of infection, UA and CXR neg Sickle cell crisis ruled out NSTEMI - likely related to crisis Dm GELA vasomotor nephropathy Plan Given review of markers of hemolysis, she is likely not an crisis, discussed with hematology. Continue to monitor daily CBC -Acute CVA note said, code stroke called, neurology input appreciated. There is some hemorrhagic conversion, and is a midline shift. Spoke with Carlos, patient is to be transferred urgently as they have neurosurgery backup and n eurosurgery unit. -In the meantime patient is being transferred to the ICU, where she'll be intubated and put on a ventilator, spoke with Dr. Gaitan of anesthesia who will perform intubation. Neurology has also ordered mannitol given breathing edema, discussed with the critical care physician She was treated with IV fluids after which her renal function improved optimized meds for chronic conditions ASA SD, statin when able to take PO , stat repeat head CT, Neuro consult, MR brain, , carotid dopplers Case dw Neurologist, anesthesiologist and intensivists Critical care time 45 minutes History Interval history: Per her sister she is not moving her right side no fever no vomiting no cough no sob she is still altered, has not been speaking or obeying commands Hospitalist Physical - Physical exam Narrative exam: General.: appears ill, non reponsive HEENT: Moist mucous membranes, extraocular muscles intact, no lymphadenopathy Neck: supple Cardiac: S1-S2 heard Lungs: clear to auscultation bilaterally Abdomen: soft , nontender, nondistended, bowel sounds positive Extremities: no edema clubbing or cyanosis Skin: no rash or lesions Neurologic: does not obey commands, non verbal, only moving her left side, R side is weak, pupils reactive, but upward gaze Psych: not responsive, does not obey commands, and is currently not verbal - Constitutional Vitals: Temp Pulse Resp BP Pulse Ox 98.5 F 94 H 22 113/49 97 08/22/18 08:00 08/22/18 08:00 08/22/18 08:00 08/21/18 02:20 08/22/18 08:00 General appearance: Present: other (lethargic, nonresponsive) Results - Labs CBC & Chem 7: 08/22/18 05:13 08/21/18 05:55 Labs: Laboratory Last Values WBC 26.4 K/mm3 (4.5-11.0) H 08/22/18 05:13 RBC 2.99 M/mm3 (3.65-5.03) L 08/22/18 05:13 Hgb 10.0 gm/dl (10.1-14.3) L 08/22/18 05:13 Hct 28.4 % (30.3-42.9) L 08/22/18 05:13 MCV 95 fl (79-97) 08/22/18 05:13 MCH 33 pg (28-32) H 08/22/18 05:13 MCHC 35 % (30-34) H 08/22/18 05:13 RDW 19.5 % (13.2-15.2) H 08/22/18 05:13 Plt Count 259 K/mm3 (140-440) 08/22/18 05:13 Dodge % (Auto) Controls Engineer 08/22/18 05:13 Lymph # Controls Engineer 08/20/18 18:18 Add Manual Diff Complete 08/22/18 05:13 Total Counted 200 08/22/18 05:13 Seg Neuts % (Manual) 88.0 % (40.0-70.0) H 08/22/18 05:13 Band Neutrophils % 6.0 % 08/22/18 05:13 Lymphocytes % (Manual) 3.5 % (13.4-35.0) L 08/22/18 05:13 Reactive Lymphs % (Man) 0 % 08/22/18 05:13 Monocytes % (Manual) 0.5 % (0.0-7.3) 08/22/18 05:13 Eosinophils % (Manual) 0 % (0.0-4.3) 08/22/18 05:13 Basophils % (Manual) 0 % (0.0-1.8) 08/22/18 05:13 Metamyelocytes % 0.5 % 08/22/18 05:13 Myelocytes % 0 % 08/22/18 05:13 Promyelocytes % 1.5 % 08/22/18 05:13 Blast Cells % 0 % 08/22/18 05:13 Nucleated RBC % 1.0 % (0.0-0.9) H 08/22/18 05:13 Seg Neutrophils # Man 23.2 K/mm3 (1.8-7.7) H 08/22/18 05:13 Band Neutrophils # 1.6 K/mm3 08/22/18 05:13 Lymphocytes # (Manual) 0.9 K/mm3 (1.2-5.4) L 08/22/18 05:13 Abs React Lymphs (Man) 0.0 K/mm3 08/22/18 05:13 Monocytes # (Manual) 0.1 K/mm3 (0.0-0.8) 08/22/18 05:13 Eosinophils # (Manual) 0.0 K/mm3 (0.0-0.4) 08/22/18 05:13 Basophils # (Manual) 0.0 K/mm3 (0.0-0.1) 08/22/18 05:13 Metamyelocytes # 0.1 K/mm3 08/22/18 05:13 Myelocytes # 0.0 K/mm3 08/22/18 05:13 Promyelocytes # 0.4 K/mm3 08/22/18 05:13 Blast Cells # 0.0 K/mm3 08/22/18 05:13 WBC Morphology Not Reportable 08/22/18 05:13 Hypersegmented Neuts Few 08/22/18 05:13 Hyposegmented Neuts Not Reportable 08/22/18 05:13 Hypogranular Neuts Not Reportable 08/22/18 05:13 Smudge Cells Not Reportable 08/22/18 05:13 Toxic Granulation Not Reportable 08/22/18 05:13 Toxic Vacuolation Not Reportable 08/22/18 05:13 Dohle Bodies Not Reportable 08/22/18 05:13 Pelger-Huet Anomaly Not Reportable 08/22/18 05:13 Christ Rods Not Reportable 08/22/18 05:13 Platelet Estimate Consistent w auto 08/22/18 05:13 Clumped Platelets Not Reportable 08/22/18 05:13 Plt Clumps, EDTA Not Reportable 08/22/18 05:13 Large Platelets Not Reportable 08/22/18 05:13 Giant Platelets Not Reportable 08/22/18 05:13 Platelet Satelliting Not Reportable 08/22/18 05:13 Plt Morphology Comment Not Reportable 08/22/18 05:13 RBC Morphology Not Reportable 08/22/18 05:13 Dimorphic RBCs Not Reportable 08/22/18 05:13 Polychromasia 1+ 08/22/18 05:13 Hypochromasia 1+ 08/22/18 05:13 Poikilocytosis Not Reportable 08/22/18 05:13 Anisocytosis 1+ 08/22/18 05:13 Microcytosis Not Reportable 08/22/18 05:13 Macrocytosis 2+ 08/22/18 05:13 Spherocytes Not Reportable 08/22/18 05:13 Pappenheimer Bodies Not Reportable 08/22/18 05:13 Sickle Cells 2+ 08/22/18 05:13 Target Cells 2+ 08/22/18 05:13 Tear Drop Cells Not Reportable 08/22/18 05:13 Ovalocytes Not Reportable 08/22/18 05:13 Stomatocytes Few 08/22/18 05:13 Helmet Cells Not Reportable 08/22/18 05:13 [place] Bodies Not Reportable 08/22/18 05:13 [place] Rings Not Reportable 08/22/18 05:13 Jennifer Cells Not Reportable 08/22/18 05:13 Bite Cells Not Reportable 08/22/18 05:13 Crenated Cell Not Reportable 08/22/18 05:13 Elliptocytes Not Reportable 08/22/18 05:13 Acanthocytes (Spur) Not Reportable 08/22/18 05:13 Rouleaux Not Reportable 08/22/18 05:13 Hemoglobin C Crystals Not Reportable 08/22/18 05:13 Schistocytes Few 08/22/18 05:13 Malaria parasites Not Reportable 08/22/18 05:13 Percent Retic 6.74 % (0.78-2.58) H 08/22/18 05:13 Juancarlos Bodies Not Reportable 08/22/18 05:13 Hem Pathologist Commnt No 08/22/18 05:13 PT 13.8 Sec. (12.2-14.9) 08/20/18 18:18 INR 1.00 (0.87-1.13) 08/20/18 18:18 APTT 27.4 Sec. (24.2-36.6) 08/20/18 18:18 Sodium 142 mmol/L (137-145) 08/21/18 05:55 Potassium 4.5 mmol/L (3.6-5.0) 08/21/18 05:55 Chloride 106.0 mmol/L (98-107) 08/21/18 05:55 Carbon Dioxide 22 mmol/L (22-30) 08/21/18 05:55 Anion Gap 19 mmol/L 08/21/18 05:55 BUN 24 mg/dL (7-17) H 08/21/18 05:55 Creatinine 1.3 mg/dL (0.7-1.2) H 08/21/18 05:55 Estimated GFR 51 ml/min 08/21/18 05:55 BUN/Creatinine Ratio 18 % 08/21/18 05:55 Glucose 272 mg/dL (65-100) H 08/21/18 05:55 Hemoglobin A1c 6.0 % (4-6) 08/22/18 05:13 Lactic Acid 1.50 mmol/L (0.7-2.0) 08/20/18 21:46 Calcium 8.3 mg/dL (8.4-10.2) L 08/21/18 05:55 Total Bilirubin 2.30 mg/dL (0.1-1.2) H 08/21/18 15:47 Direct Bilirubin 0.8 mg/dL (0-0.2) H 08/21/18 15:47 Indirect Bilirubin 1.5 mg/dL 08/21/18 15:47 AST 54 units/L (5-40) H 08/20/18 18:18 ALT 28 units/L (7-56) 08/20/18 18:18 Alkaline Phosphatase 93 units/L (35-129) 08/20/18 18:18 Ammonia 66.0 umol/L (25-60) H 08/20/18 18:44 Lactate Dehydrogenase 432 units/L (91-180) H 08/22/18 05:13 Total Creatine Kinase 102 units/L (30-135) 08/22/18 05:13 CK-MB (CK-2) 7.5 ng/mL (0.0-4.0) H 08/22/18 05:13 CK-MB (CK-2) Rel Index 7.3 (0-4) H 08/22/18 05:13 Troponin T 0.274 ng/mL (0.00-0.029) H* 08/22/18 05:13 Total Protein 7.6 g/dL (6.3-8.2) 08/20/18 18:18 Albumin 4.2 g/dL (3.9-5) 08/20/18 18:18 Albumin/Globulin Ratio 1.2 % 08/20/18 18:18 Triglycerides 137 mg/dL (2-149) 08/20/18 18:18 Cholesterol 129 mg/dL (50-199) 08/20/18 18:18 LDL Cholesterol Direct 79 mg/dL (50-130) 08/20/18 18:18 HDL Cholesterol 41 mg/dL (40-59) 08/20/18 18:18 Cholesterol/HDL Ratio 3.14 % 08/20/18 18:18 TSH 0.582 mlU/mL (0.270-4.200) 08/21/18 19:52 Free T4 1.16 ng/dL (0.76-1.46) 08/21/18 19:52 Urine Color Loretta (Yellow) 08/20/18 19:50 Urine Turbidity Clear (Clear) 08/20/18 19:50 Urine pH 5.0 (5.0-7.0) 08/20/18 19:50 Ur Specific Elfrida 1.011 (1.003-1.030) 08/20/18 19:50 Urine Protein 100 mg/dl mg/dL (Negative) 08/20/18 19:50 Urine Glucose (UA) >=500 mg/dL (Negative) 08/20/18 19:50 Urine Ketones Neg mg/dL (Negative) 08/20/18 19:50 Urine Blood Mod (Negative) 08/20/18 19:50 Urine Nitrite Neg (Negative) 08/20/18 19:50 Urine Bilirubin Neg (Negative) 08/20/18 19:50 Urine Urobilinogen 4.0 mg/dL (<2.0) 08/20/18 19:50 Ur Leukocyte Esterase Neg (Negative) 08/20/18 19:50 Urine WBC (Auto) 3.0 /HPF (0.0-6.0) 08/20/18 19:50 Urine RBC (Auto) 2.0 /HPF (0.0-6.0) 08/20/18 19:50 U Epithel Cells (Auto) < 1.0 /HPF (0-13.0) 08/20/18 19:50 Urine Bacteria (Auto) 1+ /HPF (Negative) 08/20/18 19:50 Hyaline Casts 24 /LPF 08/20/18 19:50 Urine Mucus Few /HPF 08/20/18 19:50 Salicylates < 0.3 mg/dL (2.8-20.0) L 08/20/18 18:18 Urine Opiates Screen Presumptive negative 08/21/18 21:00 Urine Methadone Screen Presumptive negative 08/21/18 21:00 Acetaminophen < 5.0 ug/mL (10.0-30.0) L 08/20/18 18:18 Ur Barbiturates Screen Presumptive negative 08/21/18 21:00 Ur Phencyclidine Scrn Presumptive negative 08/21/18 21:00 Ur Amphetamines Screen Presumptive negative 08/21/18 21:00 U Benzodiazepines Scrn Presumptive negative 08/21/18 21:00 Urine Cocaine Screen Presumptive negative 08/21/18 21:00 U Marijuana (THC) Screen Presumptive negative 08/21/18 21:00 Drugs of Abuse Note Disclamer 08/21/18 21:00 Plasma/Serum Alcohol < 0.01 % (0-0.07) 08/20/18 18:18 Blood Type A POSITIVE 08/21/18 15:47 Antibody Screen Negative 08/21/18 15:47 Crossmatch See Detail 08/21/18 15:47 Nutrition/Malnutrition Assess - Dietary Evaluation Nutrition/Malnutrition Findings: Nutrition Notes Start: 08/21/18 13:31 Freq: Status: Active Protocol: Document 08/21/18 13:31 BEULAH (Rec: 08/21/18 13:41 BEULAH [id number]) Nutrition Notes Need for Assessment generated from: secondary set up man,MST Initial or Follow up Assessment Current Diagnosis Diabetes,Hypertension,Stroke, Hyperlipidemia Other Pertinent Diagnosis Encephalopathy, Sickle cell dz , Legally blind Current Diet Cardiac/Consistent CHO Labs/Tests BUN 24 Cr 1.3 BG 272 Pertinent Medications reviewed Height 5 ft 6 in Weight 96 kg [place] Body Weight (kg) 59.09 BMI 34.1 Intake Prior to Admission Poor Weight change and time frame Per pt's sister, pt with no recent wt loss Weight Status Obese Subjective/Other Information Pt screened for malnutrition risk. She is sleeping soundly at time of visit (12:15), but her sister is able to answer assessment questions. Pt has been under a lot of stress lately and may have taken too much medication. Her PO intake has been minimal for the past few days. Pt takes oral DM medications (no insulin). 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 No Is Patient Ambulatory and/or Out of Bed No REE-([place]-confined to bed) 1890.228 Kcal/Kg value to use for calculation 17 Approximate Energy Requirements Using 1632 kcal/Kg Calculation Used for Recommendations Kcal/kg Additional Notes Pro needs 0.8-1g/kg adjBW: 62- 78g/day Fluid needs 1ml/kcal Nutrition Intervention Change Diet Order: Continue current diet order Add Supplement/Snack (indicate name/kcal Glucerna BID /protein ) Provides kCal: 440 Provides Protein (gm) 20 Goal #1 PO intake of meals plus ONS to meet at least 75% of energy and pro needs Anticipated Discharge Needs: Unable to identify at this time Follow-Up By: 08/24/18 Additional Comments F/U: intakes
[2018-08-22] MEDS ORDERED: ATIVAN IV NR (10:15)
[2018-08-22] MEDS: HALFPRIN EC PO SCH (10:58)
[2018-08-22] MEDS: ASPIRIN PR SCH (11:04)
--- NOTE | 2018-08-22 11:27 | Progress Note ---
Assessment and Plan Troponin elevation pattern appears c/w NSTEMI type II. [place] trending downwards. Await echo. Neurology w/u in progress. BPs noted to be elevated - per primary RN, to keep SBPs >160mmHg per neurology. The patient has been seen in conjunction with Dr. Cedeño who agrees with the assessment and plan of care. - Patient Problems (1) Altered mental status Current Visit: Yes Status: Acute (2) Accidental drug ingestion Current Visit: Yes Status: Acute (3) Sepsis Current Visit: Yes Status: Suspected (4) NSTEMI (non-ST elevated myocardial infarction) Current Visit: Yes Status: Acute (5) Sickle cell anemia Current Visit: Yes Status: Chronic (6) Diabetes mellitus with hyperglycemia Current Visit: Yes Status: Chronic (7) History of CVA (cerebrovascular accident) Current Visit: Yes Status: Chronic (8) GELA (acute kidney injury) Current Visit: Yes Status: Acute (9) Hypothermia Current Visit: Yes Status: Acute (10) Anemia Current Visit: Yes Status: Acute (11) HTN (hypertension) Current Visit: Yes Status: Chronic Subjective Date of service: 08/22/18 Principal diagnosis: AMS Interval history: pt remains obtunded, minimal response to sternal rub. family members at bedside. BPs elevated. Objective Last Vital Signs Temp 98.5 F 08/22/18 08:00 Pulse 94 H 08/22/18 08:00 Resp 22 08/22/18 08:00 BP 113/49 08/21/18 02:20 Pulse Ox 97 08/22/18 08:00 - Physical Examination General: Other (obtunded ) Neck: Positive: neck supple, trachea midline Cardiac: Positive: Reg Rate and Rhythm, S1/S2 Lungs: Positive: Decreased Breath Sounds Neuro: Positive: Other (unable to assess) Skin: Negative: Rash Extremities: Absent: edema - Labs and Meds Cardiac Enzymes 08/21/18 08/22/18 Range/Units 15:47 05:13 Lactate Dehydrogenase 544 H 432 H (91-180) units/L CK-MB (CK-2) 7.5 H (0.0-4.0) ng/mL CBC 08/22/18 Range/Units 05:13 WBC 26.4 H (4.5-11.0) K/mm3 RBC 2.99 L (3.65-5.03) M/mm3 Hgb 10.0 L (10.1-14.3) gm/dl Hct 28.4 L (30.3-42.9) % Plt Count 259 (140-440) K/mm3 Comprehensive Metabolic Panel 08/21/18 Range/Units 15:47 Direct Bilirubin 0.8 H (0-0.2) mg/dL Indirect Bilirubin 1.5 mg/dL - Imaging and Cardiology EKG: report reviewed, image reviewed Echo: pending - Telemetry EKG Rhythm: Sinus Rhythm - EKG Sinus rhythms and dysrhythmias: sinus rhythm AV and intraventricular conduction: right bundle branch block
--- NOTE | 2018-08-22 15:01 | Magnetic Resonance Report ---
MRI OF THE BRAIN WITHOUT CONTRAST: HISTORY: CVA PROCEDURE: Multiplanar, multisequence MR imaging of the brain without IV contrast was performed. FINDINGS: Compared to the CT head dated 08/20/18. A large area of subacute ischemia with hemorrhagic transformation has developed throughout most of the left MCA distribution since the previous CT. This area measures up to 11.9 x 6.6 cm in axial plane. There is moderate edema throughout the left cerebral hemisphere with mass effect on the left lateral ventricle and left to right midline shift measuring 9 mm at the level of the frontal horns. There are scattered millimetric foci of diffusion restriction in the right frontal and right parietal cortex as well. There are 2 areas of diffusion restriction in the left cerebellum measuring 1.7 x 1.6 cm in 2.0 x 1.3 cm. A 5 mm focus of diffusion restriction is identified in the posterior right cerebellar hemisphere. Chronic bilateral occipital infarcts are again noted. The orbital cavities and sella turcica demonstrate no abnormality. The visualized paranasal sinuses and mastoid air cells are well aerated. IMPRESSION: A large area of ischemia with hemorrhagic change has developed throughout the left MCA distribution since 08/20/18. There is moderate mass effect and left to right midline shift as outlined above. There are several smaller foci of ischemia in the right frontal cortex, right parietal cortex and bilateral cerebellar hemispheres as described. The smaller infarcts do not demonstrate hemorrhagic transformation.
--- NOTE | 2018-08-22 15:02 | Magnetic Resonance Report ---
MRA NECK WITHOUT CONTRAST HISTORY: Stroke. TECHNIQUE: [id number] imaging with MIP reformations of the neck is submitted. Rotational MIP images. Stenosis was calculated using the NASCET criteria with the distal ICA been standard diameter. FINDINGS: Severely limited examination secondary to patient motion. The cervical carotid and vertebral arteries appear patent and without significant stenosis. IMPRESSION: Severely limited exam. No hemodynamically significant stenosis is identified in the neck.
[2018-08-22] MEDS ORDERED: KEPPRA 1,000 MG/NS 0.75% 100ML 1,000 MG/100 ML BAG IV SCH ×2 (16:00→16:01)
[2018-08-22] MEDS ORDERED: VIAFLEX EMPTY CONTAINER IV ONE (16:15)
[2018-08-22] MEDS ORDERED: OSMITROL IV ONE (16:15)
--- NOTE | 2018-08-22 16:31 | Progress Note ---
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 Also carries stroke risk factors of htn., diabetes and HLP. Presented yesterday with obtundation, hypoglycemia, hypothermia and right hemiparesis. CT brain was neg. for an acute event. WBC is elevated at 29. MRI brain was performed and reveals a large MCA territory stroke with edema and shift, as well as the start of hemorrhagic transformation. Plan - Intubate for airway protection, and to reduce CO2. Mannitol 50 gm bolus. Transfer to [place] for a higher level of care. (Neuro ICU) Subjective Date of service: 08/22/18 Principal diagnosis: AMS Interval history: [address] was neg. -year-old right handed female with history of hypertension, sickle cell, hyperlipidemia, diabetes, CVA, legally blind is brought to the emergency room for decreased responsiveness. The pt. just moved in with her sister this past month. Despite being blind from a previous bilateral occipital lobe stroke 6 years ago, she has been independent, ambulatory and taking care of her own ADLs. The previous CVA only affected her vision and recent memory. When found unresponsive the pt. was brought to ER and admitted for stroke work-up. Admission CT was neg. for acute changes, revealed the old bilateral occipital lobe strokes. She continues unresponsive, with flaccid right hemiparesis. Objective - Exam Narrative Exam: General - Lying in bed, unresponsive. Does not open her eyes. Maintaining oxygenation on her own. Neurological exam - no verbal output. Does not follow commands sheet catcher - EOMs - left gaze preference, deviated downward. Eyes are yoked. Face - mild right flattening. Motor - Moves left arm and leg spontaneously. No movement in right extremities, no movement with painful stimuli. Flaccid. Reflexes - +1 throughout Sensory - does not grimace to pain. - Vital Sign Vital Signs - 12hr 08/22/18 08/22/18 08/22/18 04:40 04:50 05:00 Temperature Pulse Rate 85 97 H 96 H Pulse Rate [ Right Dorsalis Pedis] Respiratory 16 13 13 Rate Blood Pressure 92/73 92/73 185/87 O2 Sat by Pulse 98 98 99 Oximetry 08/22/18 08/22/18 08/22/18 05:10 05:20 05:30 Temperature Pulse Rate 82 87 87 Pulse Rate [ Right Dorsalis Pedis] Respiratory 16 16 16 Rate Blood Pressure 185/87 185/87 166/88 O2 Sat by Pulse 99 Oximetry 08/22/18 08/22/18 08/22/18 05:40 05:50 06:00 Temperature Pulse Rate 104 H 90 112 H Pulse Rate [ Right Dorsalis Pedis] Respiratory 15 17 14 Rate Blood Pressure 185/87 168/83 168/83 O2 Sat by Pulse 99 98 98 Oximetry 08/22/18 08/22/18 08/22/18 06:10 06:20 06:30 Temperature Pulse Rate 99 H 115 H 98 H Pulse Rate [ Right Dorsalis Pedis] Respiratory 23 22 24 Rate Blood Pressure 169/93 169/93 144/66 O2 Sat by Pulse 97 95 96 Oximetry 08/22/18 08/22/18 08/22/18 06:40 06:50 07:00 Temperature Pulse Rate 89 99 H 80 Pulse Rate [ Right Dorsalis Pedis] Respiratory 19 20 21 Rate Blood Pressure 144/66 144/66 136/62 O2 Sat by Pulse 96 96 95 Oximetry 08/22/18 08/22/18 08/22/18 07:10 07:20 07:30 Temperature Pulse Rate 85 88 104 H Pulse Rate [ Right Dorsalis Pedis] Respiratory 25 H 26 H 25 H Rate Blood Pressure 136/62 136/62 161/83 O2 Sat by Pulse 97 96 95 Oximetry 08/22/18 08/22/18 08/22/18 07:40 07:50 08:00 Temperature 98.5 F Pulse Rate 89 104 H 93 H Pulse Rate [ 94 H Right Dorsalis Pedis] Respiratory 25 H 23 24 Rate Blood Pressure 161/83 136/62 163/85 O2 Sat by Pulse 96 96 97 Oximetry 08/22/18 08/22/18 08/22/18 08:10 08:20 08:30 Temperature Pulse Rate 115 H 116 H 109 H Pulse Rate [ Right Dorsalis Pedis] Respiratory 22 24 21 Rate Blood Pressure 163/85 161/83 161/83 O2 Sat by Pulse 96 97 96 Oximetry 08/22/18 08/22/18 08/22/18 08:40 08:50 09:00 Temperature Pulse Rate 93 H 91 H 105 H Pulse Rate [ Right Dorsalis Pedis] Respiratory 27 H 26 H 31 H Rate Blood Pressure 161/83 163/85 168/95 O2 Sat by Pulse 96 96 96 Oximetry 08/22/18 08/22/18 08/22/18 09:10 09:20 09:30 Temperature Pulse Rate 119 H 114 H 109 H Pulse Rate [ Right Dorsalis Pedis] Respiratory 28 H 29 H 23 Rate Blood Pressure 168/95 168/95 168/95 O2 Sat by Pulse 95 96 95 Oximetry 08/22/18 08/22/18 08/22/18 09:40 09:50 10:00 Temperature Pulse Rate 119 H 96 H 99 H Pulse Rate [ Right Dorsalis Pedis] Respiratory 23 29 H 30 H Rate Blood Pressure 168/95 168/95 168/103 O2 Sat by Pulse 96 94 95 Oximetry 08/22/18 08/22/18 08/22/18 10:10 10:20 10:30 Temperature Pulse Rate 97 H 107 H 97 H Pulse Rate [ Right Dorsalis Pedis] Respiratory 29 H 29 H 29 H Rate Blood Pressure 168/103 168/95 168/95 O2 Sat by Pulse 95 97 96 Oximetry 08/22/18 08/22/18 08/22/18 10:40 10:50 11:00 Temperature Pulse Rate 110 H 118 H 118 H Pulse Rate [ Right Dorsalis Pedis] Respiratory 23 23 26 H Rate Blood Pressure 168/95 168/103 192/80 O2 Sat by Pulse 95 96 95 Oximetry 08/22/18 08/22/18 08/22/18 11:10 11:20 11:30 Temperature Pulse Rate 118 H 105 H 116 H Pulse Rate [ Right Dorsalis Pedis] Respiratory 25 H 27 H 24 Rate Blood Pressure 173/91 173/91 173/91 O2 Sat by Pulse 94 95 96 Oximetry 08/22/18 08/22/18 08/22/18 11:40 11:50 12:00 Temperature 99.4 F Pulse Rate 99 H 105 H 113 H Pulse Rate [ Right Dorsalis Pedis] Respiratory 31 H 30 H 24 Rate Blood Pressure 173/91 173/91 161/93 O2 Sat by Pulse 96 98 95 Oximetry 08/22/18 08/22/18 12:10 12:20 Temperature Pulse Rate 110 H 109 H Pulse Rate [ Right Dorsalis Pedis] Respiratory 20 32 H Rate Blood Pressure 161/93 161/93 O2 Sat by Pulse 96 95 Oximetry - Laboratory Findings CBC and BMP: 08/22/18 05:13 08/21/18 05:55 Abnormal Lab Findings: Abnormal Labs 08/20/18 08/20/18 08/20/18 18:18 18:18 18:18 WBC 32.1 H RBC 2.89 L Hgb 9.7 L Hct 28.0 L MCH 34 H MCHC 35 H RDW 18.9 H Seg Neuts % (Manual) 82.5 H Lymphocytes % (Manual) 8.0 L Monocytes % (Manual) Nucleated RBC % 1.0 H Seg Neutrophils # Man 26.5 H Lymphocytes # (Manual) Monocytes # (Manual) 2.1 H Basophils # (Manual) 0.2 H Percent Retic Carbon Dioxide 19 L BUN 26 H Creatinine 1.8 H Glucose 461 H Lactic Acid Calcium Total Bilirubin 3.70 H Direct Bilirubin 0.7 H AST 54 H Ammonia Lactate Dehydrogenase Total Creatine Kinase CK-MB (CK-2) CK-MB (CK-2) Rel Index Troponin T 0.035 H Salicylates < 0.3 L Acetaminophen Crossmatch 08/20/18 08/20/18 08/20/18 18:18 18:44 18:44 WBC RBC Hgb Hct MCH MCHC RDW Seg Neuts % (Manual) Lymphocytes % (Manual) Monocytes % (Manual) Nucleated RBC % Seg Neutrophils # Man Lymphocytes # (Manual) Monocytes # (Manual) Basophils # (Manual) Percent Retic Carbon Dioxide BUN Creatinine Glucose Lactic Acid 6.60 H* Calcium Total Bilirubin Direct Bilirubin AST Ammonia 66.0 H Lactate Dehydrogenase Total Creatine Kinase CK-MB (CK-2) CK-MB (CK-2) Rel Index Troponin T Salicylates Acetaminophen < 5.0 L Crossmatch 08/20/18 08/21/18 08/21/18 20:12 05:55 05:55 WBC 29.1 H RBC 3.12 L Hgb Hct 29.5 L MCH 33 H MCHC RDW 19.0 H Seg Neuts % (Manual) Lymphocytes % (Manual) 12.0 L Monocytes % (Manual) 8.0 H Nucleated RBC % 4.0 H Seg Neutrophils # Man 18.0 H Lymphocytes # (Manual) Monocytes # (Manual) 2.3 H Basophils # (Manual) Percent Retic 8.26 H Carbon Dioxide BUN 24 H Creatinine 1.3 H Glucose 272 H Lactic Acid Calcium 8.3 L Total Bilirubin Direct Bilirubin AST Ammonia Lactate Dehydrogenase Total Creatine Kinase CK-MB (CK-2) CK-MB (CK-2) Rel Index Troponin T Salicylates Acetaminophen Crossmatch 08/21/18 08/21/18 08/21/18 05:55 09:18 15:47 WBC RBC Hgb Hct MCH MCHC RDW Seg Neuts % (Manual) Lymphocytes % (Manual) Monocytes % (Manual) Nucleated RBC % Seg Neutrophils # Man Lymphocytes # (Manual) Monocytes # (Manual) Basophils # (Manual) Percent Retic 6.94 H Carbon Dioxide BUN Creatinine Glucose Lactic Acid Calcium Total Bilirubin Direct Bilirubin AST Ammonia Lactate Dehydrogenase Total Creatine Kinase 183 H 201 H CK-MB (CK-2) 13.9 H 15.0 H CK-MB (CK-2) Rel Index 7.5 H 7.4 H Troponin T 0.519 H* D 0.320 H* D Salicylates Acetaminophen Crossmatch 08/21/18 08/21/18 08/22/18 15:47 15:47 05:13 WBC RBC Hgb Hct MCH MCHC RDW Seg Neuts % (Manual) Lymphocytes % (Manual) Monocytes % (Manual) Nucleated RBC % Seg Neutrophils # Man Lymphocytes # (Manual) Monocytes # (Manual) Basophils # (Manual) Percent Retic Carbon Dioxide BUN Creatinine Glucose Lactic Acid Calcium Total Bilirubin 2.30 H Direct Bilirubin 0.8 H AST Ammonia Lactate Dehydrogenase 544 H 432 H Total Creatine Kinase CK-MB (CK-2) 7.5 H CK-MB (CK-2) Rel Index 7.3 H Troponin T 0.274 H* Salicylates Acetaminophen Crossmatch See Detail 08/22/18 05:13 WBC 26.4 H RBC 2.99 L Hgb 10.0 L Hct 28.4 L MCH 33 H MCHC 35 H RDW 19.5 H Seg Neuts % (Manual) 88.0 H Lymphocytes % (Manual) 3.5 L Monocytes % (Manual) Nucleated RBC % 1.0 H Seg Neutrophils # Man 23.2 H Lymphocytes # (Manual) 0.9 L Monocytes # (Manual) Basophils # (Manual) Percent Retic 6.74 H Carbon Dioxide BUN Creatinine Glucose Lactic Acid Calcium Total Bilirubin Direct Bilirubin AST Ammonia Lactate Dehydrogenase Total Creatine Kinase CK-MB (CK-2) CK-MB (CK-2) Rel Index Troponin T Salicylates Acetaminophen Crossmatch
[2018-08-22] MEDS ORDERED: NACL 0.9% 1000 ML 1,000 ML ONE (17:04)
--- NOTE | 2018-08-22 19:22 | XRay Report ---
PROCEDURE: XR CHEST 1V AP TECHNIQUE: Frontal chest x-ray performed supine HISTORY: Neck and chest swelling COMPARISONS: 08/20/2018 FINDINGS: Patient is intubated. Endotracheal tube tip projects well above the kathleen. Lung volumes are very low. There are diffuse right-sided infiltrates and less severe left-sided infiltrates. There is atelectasis in the right midlung. Heart size is mildly enlarged. IMPRESSION: Very low volume exam. There is been interval intubation with endotracheal tube tip well above the kathleen at the level of me dial clavicles. Developing diffuse right-sided infiltrate and mild left perihilar infiltrate. Right midlung atelectas is. Cardiomegaly.. This document is electronically signed by Tahmina Akhtar MD., August 22 2018 07:20:13 PM ET
[2018-08-22 21:09] VITALS: BP 186/90
--- NOTE | 2018-08-22 21:47 | Consultation ---
REFERRED BY: Dr. Vazquez REASON FOR CONSULTATION: Sickle cell. HISTORY OF PRESENT ILLNESS: I saw the patient, a 53-year-old female in the medical floor as per the information available. The patient's daughter was in the room. She did not have much information as per the information available, the patient has history of hypertension, sickle cell, hyperlipidemia, diabetes, CVA, legally blind. The patient came to the hospital because of decreased responsiveness. The patient was going through divorce and she undertook 12 pills, details not clear. She was unresponsive and had urinated on herself. She was brought to the hospital. As per the daughter, the patient has not been communicated to her since admission. The patient's daughter does not know who her sickle cell doctor is. REVIEW OF SYSTEMS: Not reliable as the patient is not answering questions. PAST MEDICAL HISTORY: Hypertension, sickle cell, hyperlipidemia, diabetes, CVA, legally blind. PAST SURGICAL HISTORY: Hernia surgery, gallbladder surgery. SOCIAL HISTORY: No history of tobacco or alcohol usage. FAMILY HISTORY: Hypertension. ALLERGIES: None. HOME MEDICATIONS: Include atorvastatin, folic acid, Neurontin, Dilaudid, linagliptin, losartan, Ritalin, metformin, trazodone. PHYSICAL EXAMINATION: GENERAL: Temperature 98, pulse 90, respirations 12. BP 113/70. HEENT: Mild pallor, no icterus. NECK: No neck lymph nodes. HEART: S1, S2. LUNGS: Clear to auscultation anteriorly. ABDOMEN: Soft. NEUROLOGIC: The patient is not responding to pain. LABORATORY DATA: White cell 26, hemoglobin 10, MCV 95, platelet 259, LDH high at 544, bilirubin 2.3. As per the note, sickle cell present on smear. Creatinine 1.3. ASSESSMENT AND PLAN: 1. Sickle cell. The patient was on folic acid. We will continue the same. 2. Leukocytosis. We will follow the trend. This may be reactive. 3. Encephalopathy medication related. 4. Renal impairment. 5. Hyperlipidemia. 6. Diabetes. 7. History of cerebrovascular accident. 8. As per the notes mention of being legally blind. 9. As per the medical note the patient had taken more Dilaudid. MRI brain was done during this admission. Nonvisualization of the left distal posterior cerebral artery, which may be occluded. 10. Abdomen CT, no acute pathology. 11. Head CT, no acute intracranial process seen, remote areas of infarct in both occipital lobes. 12. At this time, based on the lab, it is not clear if sickle cell has a role in her mentation, it is likely the medication, which she took. The patient's MCV is not elevated, suggesting she may not be taking Hydrea. I will leave this with the hospitalist team. Neurology consult has been obtained. JOB# [id number] NM/NTS
--- NOTE | 2018-08-23 07:33 | Discharge Summary ---
Providers - Providers Date of Admission: 08/20/18 23:58 Attending physician: AURY DE LUNA MD 08/21/18 10:47 Consult to Physician [CONS] Routine Comment: Consulting Provider: SANTANA JOHNSON Physician Instructions: Reason For Exam: nstemi 08/21/18 15:24 Consult to Physician [CONS] Routine Comment: Consulting Provider: JULIA DIMAS Physician Instructions: Reason For Exam: cva 08/21/18 15:28 Consult to Physician [CONS] Routine Comment: Consulting Provider: IND[place] TOMLINSON Physician Instructions: Reason For Exam: sickle cell 08/21/18 15:56 Physical Therapy Evaluation and Treat [CONS] Urgent Comment: Reason For Exam: General Weakness 08/22/18 16:02 Consult to Physician [CONS] Routine Comment: Consulting Provider: EMILY BEAVERS Physician Instructions: Reason For Exam: needs intubation and ICU 08/22/18 16:08 Consult to Anesthesiology [CONS] Stat Consulting Provider: [facility] Reason For Exam: Increased IC pressure Primary care physician: DEYA HANNA Hospitalization Condition: Undetermined Hospital course: 53-year-old a history of hypertension, sickle cell, hyperlipidemia, diabetes, CVA, legally blind is brought to the emergency room for decreased responsiveness. which occured after accidental overdose of dilaudid at home, she took 12 pills, and it is not clear how many were dilaudid and which were her other meds she is verbal and ambulatory at baseline and able to eat and move her extremities, she had cva during SS crisis causing large cva and permanent blindness -she now has decreased responsiveness, and R sided weakness, hx taken from her sisters, she had accidentally taken more Dilaudid not realizing that she had already taken some PAST MEDICAL HISTORY: hypertension, sickle cell, hyperlipidemia, diabetes, CVA, legally blind Diagnosis acute CVA with hemorrhagic conversion Brain edema acute anoxic , toxic and metabolic Encephalopathy Accidental dilaudid OD No evidence of infection, UA and CXR neg Sickle cell crisis ruled out NSTEMI - likely related to crisis Dm GELA vasomotor nephropathy Plan Given review of markers of hemolysis, she is likely not an crisis, discussed with hematology. Continue to monitor daily CBC -Acute CVA note said, code stroke called, neurology input appreciated. There is some hemorrhagic conversion, and is a midline shift. Spoke with Carlos, patient is to be transferred urgently as they have neurosurgery backup and neurosurgery unit. -In the meantime patient is being transferred to the ICU, where she'll be intubated and put on a ventilator, spoke with Dr. Gaitan of anesthesia who will perform intubation. Neurology has also ordered mannitol given breathing edema, discussed with the critical care physician She was treated with IV fluids after which her renal function improved optimized meds for chronic conditions -The patient was subsequently transferred to [place] for higher level of care Disposition: [id number] GEN HOSP IP Time spent for discharge: 35 minutes Core Measure Documentation - Palliative Care Palliative Care/ Comfort Measures: Not Applicable - Core Measures Any of the following diagnoses?: stroke - Stroke Discharge Requirements Statin for LDL = or >70 mg/dl on DC: Not Applicable Anticoag for atrial fib/atrial flutter: Not Applicable Antithrombotic for ischemic stroke: Yes Exam - Physical Exam Narrative exam: General.: appears ill, non reponsive HEENT: Moist mucous membranes, extraocular muscles intact, no lymphadenopathy Neck: supple Cardiac: S1-S2 heard Lungs: clear to auscultation bilaterally Abdomen: soft , nontender, nondistended, bowel sounds positive Extremities: no edema clubbing or cyanosis Skin: no rash or lesions Neurologic: does not obey commands, non verbal, only moving her left side, R side is weak, pupils reactive, but upward gaze Psych: not responsive, does not obey commands, and is currently not verbal - Constitutional Vitals: Temp Pulse Resp BP Pulse Ox 100.1 F H 111 H 16 186/90 98 08/22/18 20:05 08/22/18 20:00 08/22/18 20:00 08/22/18 19:54 08/22/18 20:00 Plan Follow up with: DEYA HANNA MD [Primary Care Provider] - 3-5 Days
== END 2018-08-22 20:00 | disposition short-term general hospital (02) | DRG 917 ==
LOC: ED 18:18 → CC1 23:58 → IMCU 08-21 01:09 → CC1 08-22 16:30
PROVIDERS: ADMIT Internal Medicine; ATTEND Internal Medicine
PROC: 5A1935Z Respiratory Ventilation, Less than 24 Consecutive Hours (ICD-10-PCS; principal; 2018-08-22)
PROC: 0BH17EZ Insertion of Endotracheal Airway into Trachea, Via Natural or Artificial Opening (ICD-10-PCS; 2018-08-22)
DX: T40.2X1A Poisoning by other opioids, accidental (unintentional), initial encounter (principal); A41.9 Sepsis, unspecified organism; I21.4 Non-ST elevation (NSTEMI) myocardial infarction; N17.0 Acute kidney failure with tubular necrosis; G92 Toxic encephalopathy; R65.21 Severe sepsis with septic shock; D57.00 Hb-SS disease with crisis, unspecified; I63.9 Cerebral infarction, unspecified; I61.9 Nontraumatic intracerebral hemorrhage, unspecified; I69.351 Hemiplegia and hemiparesis following cerebral infarction affecting right dominant side; E11.649 Type 2 diabetes mellitus with hypoglycemia without coma; H54.8 Legal blindness, as defined in USA; I10 Essential (primary) hypertension; Z82.49 Family history of ischemic heart disease and other diseases of the circulatory system; Z90.49 Acquired absence of other specified parts of digestive tract; Z79.82 Long term (current) use of aspirin; Z79.899 Other long term (current) drug therapy; Z79.84 Long term (current) use of oral hypoglycemic drugs; Y92.009 Unspecified place in unspecified non-institutional (private) residence as the place of occurrence of the external cause; I69.398 Other sequelae of cerebral infarction
CPT/HCPCS: 36415; 70450; 70544; 70547; 70551; 71045; 74176; 80048; 80061; 80076; 80307; 80320; 81001; 82140; 82247; 82248; 82550; 82553; 82803; 82962; 83036; 83615; 84439; 84443; 84484; 85007; 85025; 85045; 85610; 85730; 86850; 86900; 86901; 86920; 87040; 87086; 93005; 93010; 94002; 94640; 94760; G0378; G0480; J1650; J1815; J1953; J2060; J2150; J2543; J3370; J7030